=== PATIENT | female | born 1940 | race Caucasian/White ===

== ENCOUNTER → 2018-06-09 14:12 | Outpatient (CLI) | payer MEDICARE, SELFPAY ==
--- NOTE | 2018-06-09 14:15 | CT_ITS ---
CT wrist RT wo con INDICATION: pain following injury, comminuted radial fracture, evaluate for possible punch fracture ITS.REASON: evaluate fracture ORDERING PHYSICIAN: Abiodun Villatoro MD PATIENT AGE: 78 years COMPARISON: 06/08/2018 TECHNIQUE: Axial images are obtained without contrast. Sagittal and coronal reformatted images are reviewed as well. All CT scans at the facility use one or more dose reduction, viz: automated exposure control, ma/kV adjustment per patient size (including targeted exams where dose is matched to indication, i.e. head), or iterative reconstruction technique. FINDINGS: There is a comminuted distal radial fracture abdomen both longitudinal and transverse components. A longitudinal component extending into the intra-articular surface. There is minimal dorsal displacement of a dorsal fracture fragment x 3 mm and minimal dorsal angulation distal fracture fragment. There is no significant depression into the radial articular surface. The carpal bones have an unremarkable appearance. IMPRESSION: Comminuted distal radial fracture with intra-articular involvement with minimal dorsal displacement of the dorsal distal fracture fragment by 3 to 4 mm. No significant depression of the distal radial surface
== END ==
PROVIDERS: PCP Nurse Practitioner; Visit Provider Orthopaedic Surgery
DX: S52.501A Unspecified fracture of the lower end of right radius, initial encounter for closed fracture (principal)
CPT/HCPCS: 73200

== ENCOUNTER → 2018-07-18 12:52 | Outpatient (CLI) | payer MEDICARE, SELFPAY ==
--- NOTE | 2018-07-18 12:56 | XR_ITS ---
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 The distal radial fracture is once again noted with a transverse and longitudinal component with mild impaction of the fracture fragments. There is some increasing callus formation along the dorsal ulnar aspect of the fracture. The longitudinal component extending into the articular surface is somewhat less apparent. There remains good alignment. IMPRESSION: Healing distal radial fracture.
== END ==
PROVIDERS: PCP Nurse Practitioner; Visit Provider Orthopaedic Surgery
DX: S52.501A Unspecified fracture of the lower end of right radius, initial encounter for closed fracture (principal)
CPT/HCPCS: 73110

== ENCOUNTER 2018-07-18 13:47 | Outpatient (RCR) | payer MEDICARE, SELFPAY | END 2018-07-18 13:48 | disposition home or self-care (01) | LOC: OT 13:47 | PROVIDERS: PCP Nurse Practitioner; Visit Provider Orthopaedic Surgery | DX: S52.501A Unspecified fracture of the lower end of right radius, initial encounter for closed fracture (principal) | CPT/HCPCS: 97763 ==

== ENCOUNTER → 2020-03-04 09:05 | Outpatient (CLI) | payer MEDICARE, SELFPAY ==
--- NOTE | 2020-03-04 09:12 | MR_ITS ---
PROCEDURE: MR ANKLE RT WO CON CLINICAL INDICATION: PAIN IN RT ANKLE Ankle pain and swelling, prior injury with pain COMPARISON: No exams were available for comparison TECHNIQUE: Routine multiplanar multi echo sequences are performed without gadolinium enhancement. FINDINGS: The anterior posterior tib fib syndesmosis appears intact. The anterior talofibular ligament and posterior talofibular ligament appears intact. The deltoid ligament, Achilles tendon, extensor tendons, peroneal tendon, flexor hallucis and flexor digitorum longus and posterior tibialis tendons appear intact. There is diffuse increased T2 signal involving the anterior aspect of the talus in the neck of the talus. The soft tissues along the dorsal aspect of the talus also show increased T2 signal. There is some slight increased T2 signal along the plantar surface of the navicular. Plantar fascia is intact. There is a small area of fluid collection within the quadratus plantae muscle/tendon junction. This could be due to old injury IMPRESSION: 1. Diffuse bone marrow edema of the neck and anterior aspect of the talus. This is nonspecific and could be due to bone bruise, inflammation, or infection/osteomyelitis. There is some mild overlying soft tissue swelling dorsally 2. Nonspecific fluid collection within the quadratus plantae musculotendinous junction and could be due to old trauma versus a ganglion cyst. . There is some mild diffuse subcutaneous edema about the ankle Dictated by: Valdemar Sharp MD 03/05/2020 12:39 Electronically signed by Valdemar Sharp MD in [place] 03/05/2020 12:39
== END ==
PROVIDERS: PCP Nurse Practitioner; Visit Provider Orthopaedic Surgery Adult Reconstructive Orthopaedic Surgery
DX: M25.571 Pain in right ankle and joints of right foot (principal)
CPT/HCPCS: 73721

== ENCOUNTER → 2021-02-12 10:02 | Outpatient (POV) | payer MEDICARE, SELFPAY | PROVIDERS: Visit Provider Audiologist | DX: Z00.00 Encounter for general adult medical examination without abnormal findings (principal) ==

== ENCOUNTER → 2021-09-15 11:39 | Outpatient (CLI) | payer MEDICARE, SELFPAY ==
[2021-09-15 12:24] LABS: Basophils % 0.5 % (0.1-2.0); Eosinophils # 0.2 K/mm3 (0.0-0.4); Eosinophils % 3.7 % (0.1-12.0); Hematocrit 41.6 % (37.0-47.0); Hemoglobin 14.3 g/dL (12.2-16.2); Lymphocytes # 1.6 K/mm3 (0.7-4.5); Mean Corpuscular HGB Conc 34.5 g/dL (31.8-35.4); Mean Corpuscular Hemoglobin 31.4 pg (27.0-31.2); Mean Platelet Volume 8.2 fl (7.4-10.4); Monocytes # 0.2 K/mm3 (0.1-1.0); Monocytes % 4.1 % (1.7-9.3); Neutrophils # 2.6 K/mm3 (1.8-7.8); Neutrophils % 56.7 % (37.0-80.0); Platelet Count 201 K/mm3 (142-424); Red Blood Count 4.57 M/mm3 (4.20-5.40); Red Cell Distribution Width 13.8 % (11.5-17.5); White Blood Count 4.6 K/mm3 (4.8-10.8)
[2021-09-15 13:06] LABS: Troponin I < 0.01 ng/ml (0.00-0.034)
[2021-09-15 13:23] LABS: Thyroid Stimulating Hormone 1.58 uIU/mL (0.465-4.68)
== END ==
PROVIDERS: Visit Provider Family Medicine
DX: R42 Dizziness and giddiness (principal); Z79.899 Other long term (current) drug therapy
CPT/HCPCS: 36415; 84443; 84484; 85025

== ENCOUNTER → 2021-10-26 12:03 | Outpatient (CLI) | payer MEDICARE, SELFPAY ==
[2021-10-26 14:19] LABS: Microscopic, Urine URINE MICROSCOPIC (MICROSCOPIC)
[2021-10-26 14:34] LABS: Appearance,Urine CLEAR (Clear); Bilirubin,Urine Negative (Negative); Blood, Urine TRACE-I (Negative); Color,Urine YELLOW (Yellow); Glucose,Urine (UA) Negative (Negative); Ketones,Urine Negative (Negative); Leukocyte Esterase,Urine 1+ (Negative); Nitrate,Urine POSITIVE (Negative); Protein,Urine Negative (Negative); Specific Gravity, Urine 1.015 (1.005-1.030); Urobilinogen,Urine 0.2 EU/dl (0.2)
[2021-10-26 14:40] LABS: Chloride 105 mmol/L (98-107); Potassium 4.1 mmoL/L (3.5-5.1); Sodium 141 mmol/L (136-145)
[2021-10-26 14:41] LABS: Basophils # 0.1 K/mm3 (0-0.2); Basophils % 1.3 % (0.1-2.0); Eosinophils # 0.1 K/mm3 (0.0-0.4); Eosinophils % 1.6 % (0.1-12.0); Hematocrit 40.8 % (37.0-47.0); Hemoglobin 13.2 g/dL (12.2-16.2); Lymphocytes # 1.7 K/mm3 (0.7-4.5); Lymphocytes % 26.8 % (10-50); Mean Corpuscular HGB Conc 32.4 g/dL (31.8-35.4); Mean Corpuscular Hemoglobin 30.2 pg (27.0-31.2); Mean Corpuscular Volume 93.1 fl (81-99); Mean Platelet Volume 8.7 fl (7.4-10.4); Monocytes # 0.2 K/mm3 (0.1-1.0); Neutrophils # 4.4 K/mm3 (1.8-7.8); Neutrophils % 67.4 % (37.0-80.0); Platelet Count 289 K/mm3 (142-424); Red Blood Count 4.38 M/mm3 (4.20-5.40); Red Cell Distribution Width 13.9 % (11.5-17.5); White Blood Count 6.5 K/mm3 (4.8-10.8)
[2021-10-26 14:43] LABS: Amylase 41 U/L (30-110); Anion Gap 13.1 mEq/L (5-15); Blood Urea Nitrogen 24 mg/dl (7-17); Carbon Dioxide 27 mmol/L (22.0-30.0); Estimated Glomerular Filt Rate 48 ml/min (>60); GFR (African American) 58 ML/MIN (>60); Lipase 25 U/L (23-300)
[2021-10-26 14:44] LABS: Calcium 9.2 mg/dl (8.4-10.2); Glucose 125 mg/dl (74-100)
[2021-10-26 15:01] LABS: Bacteria,Urine 4+ /lpf
[2021-11-06 18:14] LABS: 1,25 Dihydroxy Vitamin D 43 pg/mL (.); 1,25-Dihydroxy, Vitamin D-2 <10 pg/mL (.); 1,25-Dihydroxy, Vitamin D-3 42 pg/mL (.)
== END ==
PROVIDERS: Internal Medicine; PCP Family Medicine; Visit Provider Nurse Practitioner
DX: R00.2 Palpitations (principal); R07.9 Chest pain, unspecified; R42 Dizziness and giddiness; R55 Syncope and collapse; R94.31 Abnormal electrocardiogram [ECG] [EKG]; Z87.891 Personal history of nicotine dependence; R68.83 Chills (without fever); Z01.812 Encounter for preprocedural laboratory examination; Z11.52 Encounter for screening for COVID-19
CPT/HCPCS: 80048; 81001; 82150; 82652; 83690; 85025; 87086; 87088; 87186; 93225; C9803; U0003; U0005

== ENCOUNTER 2021-10-27 09:19 | Day surgery (SDC) | payer MEDICARE, SELFPAY ==
[2021-10-27] VITALS (10 sets, daily range): BP systolic 102–164; BP diastolic 57–80; PULSE 46–70; RESP 16–20; TEMP 36.9; O2SAT 95–97; BMI 25.0
--- NOTE | 2021-10-27 | IR_ITS ---
APPROVED REPORT Patient Location: Outpatient PROCEDURES Left heart catheterization Left ventriculogram Selective coronary angiogram FFR to the LAD with an IFR index of 0.72 prior to adenosine administration Drug-eluting stent deployment to the mid LAD Informed consent was obtained prior to the procedure. COMPLICATIONS None Estimated Blood Loss: Less than 10 mls TECHNIQUE One percent lidocaine used to anesthetize the right anterior aspect of the wrist. The right radial artery was accessed via the Seldinger technique. A 6 [place] sheath was placed in the right radial artery. 2.5 mg of verapamil, 800 mcg of nitroglycerin, 1mg Lidocaine and 5000 U Heparin were given through the arterial sheath. The Poppa catheter was also used to perform left heart catheterization, left ventriculogram and selective coronary angiogram. At the end of the diagnostic angiogram therapeutic heparin was administered and a Choice PT extra-support wire was placed distally. An FFR nevus catheter was placed distally and prior to the administration of adenosine the FFR index dropped to 0.72. Given this represented a severe hemodynamic stenosis the apparatus was removed and a 2 mm balloon had to be used to predilate the stenosis due to inability to primarily stent the vessel. A 2.5 x 26 mm resolute Jonh stent was deployed at 20 lavinia reducing the hemodynamically severe stenosis to 0%. MAJO-3 flow was present before and after the procedure. At the end of the procedure the apparatus was removed the sheath was removed good hemostasis was achieved using TR banding patient was transferred to the postop already in stable condition ANGIOGRAPHIC RESULTS The left main artery Normal The left anterior descending artery Is proximally tapered with no overt or obvious stenosis. The midportion is calcified and has an angiographic 70 to 80% concentric stenosis. Distally there are 30 and 40% stenoses present. The circumflex artery Is nondominant yet still large with a proximal concentric 40% stenosis. The remaining vessel has mild 10% atheromatous plaque The right coronary artery Is a large dominant vessel and has proximal diffuse 20 to 30% concentric stenoses The KEARNS ventriculogram reveals Normal 65% The left ventricular end-diastolic pressure 10 mmHg IMPRESSION Hemodynamically severe disease in the mid LAD with successful stenting reducing the stenosis to 0% with 1 drug-eluting stent Normal ejection fraction Normal left ventricular end-diastolic pressure PLAN 1. Brilinta 90 twice daily 2. Continue with beta-rashida therapy 3. LDL less than 55 to be achieved with high intensity statin 4. Recommend loop recorder given syncope with nondiagnostic Holter monitor 5. Recommend PPI because of history of gastric surgery Electronically signed by : Polo Conti MD 10/27/2021 13:12:12
--- NOTE | 2021-10-27 09:37 | CA_ITS ---
APPROVED REPORT EXAM: Comprehensive 2D, Doppler, and color-flow Echocardiogram Scraper Burrer: Neha Whiting RT(R) Ht: 5 ft 5 in Wt: 149lbs BSA: 1.75 BP: 130/84 mmHg Indications: CP, DM, palpitations, MEYER 2D Dimensions LVOT 2.05 cm (M/F) 1.5-2.5 LA Volume 42.80 mL LA Volume Index 24.59 mL/m2 (M/F) 16-34 M-Mode Dimensions RVDd 2.77 cm (0.9-2.6) LA Diam 4.38 cm (1.9-4.0) LVDd 3.34 cm (3.5-5.7) Ao Diam 2.67 cm (2.0-3.7) LVDs 2.51 cm (3.5-5.7) IVSd 0.84 cm (0.6-1.1) PWd 0.72 cm (0.6-1.1) EF (Teich) 50.40% FS 24.90% EDV (Teich) 45.40 mL ESV (Teich) 22.50 mL LV Diastology E Decel Time 190.00 (160-240 msec) E/A Ratio 0.8 MED E' 6.50 (< 7 cm/sec) E'/MED E' Ratio 15.14 (>14) LAT E' 9.20 (<10 cm/sec) E/LAT E' Ratio 10.70 (>14) Mitral Valve MV E Max Rupert. 98.00 (40-130 cm/s) MV A Velocity 122.00 (40-130 cm/s) E/A Ratio 0.81 MV Decel. Time 190.00 (160-240 ms) MV PHT 56.00 ms Left Ventricle Left atrium is mildly enlarged, left ventricle is normal size, mild concentric left ventricular hypertrophy, visually estimated ejection fraction 55% with no regional wall motion abnormality, grade 1 diastolic dysfunction seen without tissue Doppler evidence of raise left atrial pressure. Right Ventricle Right atrium and right ventricle are normal size and contractility. Aortic Valve Aortic valve is thickened and calcified without Doppler evidence of aortic stenosis or aortic insufficiency. Mitral Valve Mitral valve leaflets are minimally thickened, there is mild mitral regurgitation. Tricuspid Valve Tricuspid grossly normal, there is mild tricuspid regurgitation, tricuspid regurgitation jet velocity is inadequate for calculation of the right ventricular systolic pressure. Pulmonic Valve Pulmonic valve is poorly visualized. Great Vessels Aortic root is normal size. Inferior vena cava normal size with normal inspiratory collapse. Pericardium No significant pericardial effusion. Conclusion 1. Mildly enlarged left atrium, normal left ventricular size, mild concentric left ventricular hypertrophy, visually estimated ejection fraction 55% with no regional wall motion abnormality, grade 1 diastolic dysfunction seen without tissue Doppler evidence of raise left atrial pressure. 2. Mild mitral and tricuspid regurgitation. 3. No significant pericardial effusion. 4. Inferior vena cava is normal size with normal inspiratory collapse. Electronically signed by : Manuel Tidwell MD 10/27/2021 19:32:16
[2021-10-27 13:34] LABS: CATHL Activated Clotting Time 317 SEC (74-125)
[2021-10-27 13:34] LABS: CATHL Activated Clotting Time 272 SEC (74-125)
--- NOTE | 2021-10-27 15:33 | HMH.PHACLD ---
Jackie Tripp has received discharge medication counseling on the following medications: -BYSTOLIC (WATCH FOR DIZZINESS/LIGHTHEADEDNESS) -BRILINTA (BRUISING/BLEEDING RISK, GO TO ER IF BUMP HEAD TO RULE OUT BLEED) -LIPITOR (MUSCLE PAIN SIDE EFFECT/CALL MD IF THIS OCCURS, TAKE IN THE EVENING)
== END 2021-10-27 15:22 | disposition home or self-care (01) ==
LOC: CATHLAB 09:21
PROVIDERS: PCP Family Medicine; Visit Provider Internal Medicine
DX: R00.2 Palpitations (principal); R07.9 Chest pain, unspecified; R42 Dizziness and giddiness; R55 Syncope and collapse; R94.31 Abnormal electrocardiogram [ECG] [EKG]; Z87.891 Personal history of nicotine dependence; E11.9 Type 2 diabetes mellitus without complications; I25.10 Atherosclerotic heart disease of native coronary artery without angina pectoris
CPT/HCPCS: 85347; 92928; 93306; 93458; 93571; 99152; 99153; C1725; C1769; C1876; C9600; J0153; J1644; Q9967

== ENCOUNTER → 2021-11-04 13:40 | Outpatient (CLI) | payer MEDICARE, SELFPAY ==
[2021-11-04 14:20] LABS: Coronavirus 19, PCR Not Detected (NotDetected); Influenza A, PCR Not Detected (NotDetected); Influenza B, PCR Not Detected (NotDetected)
== END ==
PROVIDERS: PCP Family Medicine; Visit Provider Internal Medicine
DX: I25.10 Atherosclerotic heart disease of native coronary artery without angina pectoris (principal); I51.89 Other ill-defined heart diseases; R00.1 Bradycardia, unspecified; R00.2 Palpitations; R07.9 Chest pain, unspecified; R42 Dizziness and giddiness; R55 Syncope and collapse; R94.31 Abnormal electrocardiogram [ECG] [EKG]; Z87.891 Personal history of nicotine dependence
CPT/HCPCS: C9803; U0003; U0005

== ENCOUNTER 2021-11-04 14:05 | Day surgery (SDC) | payer MEDICARE, SELFPAY ==
[2021-11-04 14:11] VITALS: BMI 24.7
[2021-11-04 14:30] VITALS: BP 151/76; PULSE 62; PULSE 64; RESP 19; O2SAT 99
[2021-11-04 14:45] VITALS: BP 160/72; PULSE 60; RESP 19; O2SAT 98
--- NOTE | 2021-11-04 14:54 | HMH.LOOP ---
[facility] Loop Recorder Date: 11/04/21 Time: 14:54 Procedure Performed:: implantation of loop recorder Indication:: syncope Technique:: Patient was brought to the cardiac A Operator. After informed consent obtained, 1% lidocaine with epinephrine was used to anesthetize the site along the left anterior aspect of the chest near the sternal border. Using the preformed scalpel, an incision was made and using the supplied preloaded apparatus, the loop recorder was placed subcutaneously without difficulty. Following the deployment of the loop recorder interrogation of the device was performed to ensure appropriate voltage was being detected (.035 mV). Once this was verified, Steri-Strips were placed over the incision and the patient was prepped to discharge home. Patient tolerated the procedure well with minimal discomfort. Impression:: successful implantation of loop recorder Serial Number:: [facility]-Dx M301 Serial # [id number] Plan:: Routine post op care
[2021-11-04 15:00] VITALS: BP 156/65; PULSE 60; PULSE 62; RESP 19; O2SAT 98
== END 2021-11-04 15:14 | disposition home or self-care (01) ==
LOC: CATHLAB 14:07
PROVIDERS: PCP Family Medicine; Visit Provider Internal Medicine
DX: R55 Syncope and collapse (principal); Z20.822 Contact with and (suspected) exposure to COVID-19; I25.10 Atherosclerotic heart disease of native coronary artery without angina pectoris; R07.9 Chest pain, unspecified; Z95.5 Presence of coronary angioplasty implant and graft; R94.31 Abnormal electrocardiogram [ECG] [EKG]; R00.1 Bradycardia, unspecified
CPT/HCPCS: 33285; C9803; U0003; U0005

== ENCOUNTER → 2021-11-10 13:17 | Outpatient (CLI) | payer MEDICARE, SELFPAY ==
--- NOTE | 2021-11-10 13:25 | CT_ITS ---
FINAL REPORT TECHNIQUE: Multiple axial CT sections were performed from the foramen magnum to the vertex. Coronal reformatted images were also obtained. Precontrast and postcontrast injection images were obtained. This study was performed with technique to keep radiation doses as low as reasonably achievable, (ALARA). Individualized dose reduction techniques using automated exposure control or adjustment of mA and/or kV according to the patient size were employed. CLINICAL HISTORY: dizziness/syncope FINDINGS: The ventricles are normal in size. There is no evidence of hemorrhage. No masses are identified. No extra-axial fluid collection is seen. The sinuses are normal. No osseous abnormality is seen on the bone window images. Postcontrast images demonstrate no abnormal enhancement. IMPRESSION: Unremarkable CT of the head with and without contrast. Reviewed, Interpreted and Dictated by Johny Avitia III, MD Transcribed by Janis Ferrari Authenticated by Johny Avitia III, MD on 11/10/2021 03:11:21 PM [facility]
== END ==
PROVIDERS: PCP Family Medicine; Visit Provider Internal Medicine
DX: I25.10 Atherosclerotic heart disease of native coronary artery without angina pectoris (principal); R00.2 Palpitations; R07.9 Chest pain, unspecified; R42 Dizziness and giddiness; R55 Syncope and collapse; R94.31 Abnormal electrocardiogram [ECG] [EKG]; Z87.891 Personal history of nicotine dependence
CPT/HCPCS: 70470; Q9967

== ENCOUNTER 2021-11-18 09:41 | Outpatient (RCR) | payer MEDICARE, SELFPAY | END 2021-12-22 14:27 | disposition home or self-care (01) | LOC: PT 09:41 | PROVIDERS: Visit Provider Internal Medicine | DX: I25.10 Atherosclerotic heart disease of native coronary artery without angina pectoris (principal); Z95.5 Presence of coronary angioplasty implant and graft ==

== ENCOUNTER → 2021-11-30 09:42 | Outpatient (CLI) | payer MEDICARE, SELFPAY ==
[2021-11-30 09:52] LABS: Microscopic, Urine URINE MICROSCOPIC (MICROSCOPIC)
[2021-11-30 10:35] LABS: Basophils # 0.1 K/mm3 (0-0.2); Basophils % 0.4 % (0.1-2.0); Eosinophils % 0.1 % (0.1-12.0); Hematocrit 36.9 % (37.0-47.0); Hemoglobin 11.9 g/dL (12.2-16.2); Lymphocytes # 1.1 K/mm3 (0.7-4.5); Mean Corpuscular HGB Conc 32.2 g/dL (31.8-35.4); Mean Corpuscular Hemoglobin 30.7 pg (27.0-31.2); Mean Corpuscular Volume 95.4 fl (81-99); Mean Platelet Volume 8.5 fl (7.4-10.4); Monocytes # 0.6 K/mm3 (0.1-1.0); Monocytes % 4.5 % (1.7-9.3); Neutrophils # 12.3 K/mm3 (1.8-7.8); Neutrophils % 87.1 % (37.0-80.0); Platelet Count 310 K/mm3 (142-424); Red Blood Count 3.87 M/mm3 (4.20-5.40); Red Cell Distribution Width 14.2 % (11.5-17.5); White Blood Count 14.1 K/mm3 (4.8-10.8)
[2021-11-30 10:38] LABS: MANUAL DIFFERENTIAL MANUAL DIFFERENTIAL (MANUAL DIFF)
[2021-11-30 10:41] LABS: Chloride 100 mmol/L (98-107); Potassium 4.2 mmoL/L (3.5-5.1); Sodium 134 mmol/L (136-145)
[2021-11-30 10:44] LABS: Blood Urea Nitrogen 23 mg/dl (7-17); Estimated Glomerular Filt Rate 48 ml/min (>60); GFR (African American) 58 ML/MIN (>60)
[2021-11-30 10:45] LABS: Anion Gap 13.2 mEq/L (5-15); Appearance,Urine CLEAR (Clear); Blood, Urine Negative (Negative); Carbon Dioxide 25 mmol/L (22.0-30.0); Color,Urine YELLOW (Yellow); Glucose 182 mg/dl (74-100); Glucose,Urine (UA) Negative (Negative); Ketones,Urine 2+ (Negative); Leukocyte Esterase,Urine TRACE (Negative); Nitrate,Urine Negative (Negative); Protein,Urine TRACE (Negative); Specific Gravity, Urine 1.025 (1.005-1.030); Urobilinogen,Urine 0.2 EU/dl (0.2)
[2021-11-30 11:09] LABS: Bilirubin,Urine 1+ (Negative)
[2021-11-30 11:10] LABS: Bacteria,Urine Trace /lpf
[2021-11-30 11:50] LABS: Lymphocytes % 3 % (10-50); Monocytes % 5 % (2-9); Neutrophils % 92 % (42-76); Nucleated Red Blood Cells 1; Platelet Estimate Normal; Total Cells Counted 100
== END ==
PROVIDERS: Visit Provider Internal Medicine
DX: I25.10 Atherosclerotic heart disease of native coronary artery without angina pectoris (principal); I45.10 Unspecified right bundle-branch block; I48.0 Paroxysmal atrial fibrillation; R94.31 Abnormal electrocardiogram [ECG] [EKG]; Z87.891 Personal history of nicotine dependence; Z95.818 Presence of other cardiac implants and grafts
CPT/HCPCS: 36415; 80048; 81001; 85007; 85025

== ENCOUNTER → 2022-02-10 12:29 | Outpatient (CLI) | payer MEDICARE, SELFPAY ==
[2022-02-10 13:19] LABS: Alanine Aminotransferase 24 U/L (12-78); Albumin Level 3.9 g/dl (3.5-5.0); Alkaline Phosphatase 95 U/L (38-126); Aspartate Amino Transferase 28 U/L (14-36); Bilirubin,Direct 0.1 mg/dl (0.0-0.4); Bilirubin,Indirect 0.7 mg/dL (0.0-0.9); Bilirubin,Total 0.8 mg/dl (0.2-1.3); Bilirubin,Unconjugated 0.7 mg/dL (0.0-1.1); Chol/HDL Ratio 1.7 (1-3.5); Cholesterol 109 mg/dl (140-200); Creatine Kinase 97 U/L (30-135); HDL Cholesterol 64 mg/dl (40-60); Total Protein,Serum 6.7 g/dl (6.3-8.2); Triglycerides 80 mg/dl (30-150); VLDL Cholesterol 16 mg/dL (0-40)
[2022-02-10 13:31] LABS: Direct LDL Cholesterol 30.09 mg/dL (100-129)
== END ==
PROVIDERS: Visit Provider Physician Assistant
DX: I25.10 Atherosclerotic heart disease of native coronary artery without angina pectoris (principal); I45.10 Unspecified right bundle-branch block; I48.0 Paroxysmal atrial fibrillation; R94.31 Abnormal electrocardiogram [ECG] [EKG]; Z87.891 Personal history of nicotine dependence; Z95.818 Presence of other cardiac implants and grafts
CPT/HCPCS: 36415; 80061; 80076; 82550

== ENCOUNTER → 2022-07-19 08:52 | Outpatient (CLI) | payer MEDICARE, SELFPAY ==
[2022-07-19 09:49] LABS: Basophils # 0.1 K/mm3 (0-0.2); Basophils % 0.8 % (0.1-2.0); Eosinophils # 0.1 K/mm3 (0.0-0.4); Eosinophils % 2.3 % (0.1-12.0); Hematocrit 41.2 % (37.0-47.0); Lymphocytes # 2.1 K/mm3 (0.7-4.5); Lymphocytes % 33.9 % (10-50); Mean Corpuscular HGB Conc 31.6 g/dL (31.8-35.4); Mean Corpuscular Hemoglobin 29.4 pg (27.0-31.2); Mean Corpuscular Volume 93.1 fl (81-99); Mean Platelet Volume 8.9 fl (7.4-10.4); Monocytes # 0.3 K/mm3 (0.1-1.0); Monocytes % 4.3 % (1.7-9.3); Neutrophils # 3.6 K/mm3 (1.8-7.8); Neutrophils % 58.6 % (37.0-80.0); Platelet Count 283 K/mm3 (142-424); Red Blood Count 4.42 M/mm3 (4.20-5.40); Red Cell Distribution Width 15.3 % (11.5-17.5); White Blood Count 6.1 K/mm3 (4.8-10.8)
[2022-07-19 10:27] LABS: Alanine Aminotransferase 26 U/L (12-78); Albumin/Globulin Ratio 1.4 (1.1-1.8); Alkaline Phosphatase 145 U/L (38-126); Anion Gap 14.2 mEq/L (5-15); Aspartate Amino Transferase 34 U/L (14-36); Bilirubin,Total 0.6 mg/dl (0.2-1.3); Blood Urea Nitrogen 21 mg/dl (7-17); Calcium 9.3 mg/dl (8.4-10.2); Carbon Dioxide 26 mmol/L (22.0-30.0); Chloride 106 mmol/L (98-107); Chol/HDL Ratio 2.5 (1-3.5); Cholesterol 160 mg/dl (140-200); Estimated Glomerular Filt Rate 69 ml/min (>60); GFR (African American) 83 ML/MIN (>60); Globulin 2.8 g/dL (1.3-3.2); Glucose 127 mg/dl (74-100); HDL Cholesterol 64 mg/dl (40-60); Potassium 4.2 mmoL/L (3.5-5.1); Sodium 142 mmol/L (136-145); Total Protein,Serum 6.8 g/dl (6.3-8.2); Triglycerides 142 mg/dl (30-150); VLDL Cholesterol 28 mg/dL (0-40)
[2022-07-19 10:45] LABS: Direct LDL Cholesterol 67.03 mg/dL (100-129)
[2022-07-19 10:56] LABS: Thyroid Stimulating Hormone 1.91 uIU/mL (0.465-4.68)
== END ==
PROVIDERS: PCP Family Medicine; Visit Provider Family Medicine
DX: I25.10 Atherosclerotic heart disease of native coronary artery without angina pectoris (principal); G47.00 Insomnia, unspecified; Z87.440 Personal history of urinary (tract) infections; R82.90 Unspecified abnormal findings in urine
CPT/HCPCS: 36415; 80053; 80061; 84443; 85025; 87086; 87088; 87186

== ENCOUNTER → 2022-08-02 13:21 | Outpatient (CLI) | payer MEDICARE, SELFPAY | PROVIDERS: PCP Family Medicine; Visit Provider Family Medicine | DX: R74.8 Abnormal levels of other serum enzymes (principal) | CPT/HCPCS: 80053; 83036; 84075; 84080; 87086 ==

== ENCOUNTER → 2022-11-29 13:54 | Outpatient (CLI) | payer MEDICARE, SELFPAY ==
[2022-11-29 15:12] LABS: Hemoglobin A1C 6.4 % (4.0-6.0)
[2022-11-29 15:17] LABS: Microalbumin/Creatinine Ratio 147.4
[2022-11-29 15:24] LABS: Creatinine,Urine Random 51 mg/dL (Not Estab.)
[2022-11-29 15:36] LABS: Chloride 107 mmol/L (98-107); Sodium 139 mmol/L (136-145)
[2022-11-29 15:37] LABS: Potassium 4.7 mmoL/L (3.5-5.1)
[2022-11-29 15:39] LABS: Alanine Aminotransferase 28 U/L (12-78); Albumin Level 4.1 g/dl (3.5-5.0); Albumin/Globulin Ratio 1.5 (1.1-1.8); Alkaline Phosphatase 113 U/L (38-126); Anion Gap 10.7 mEq/L (5-15); Aspartate Amino Transferase 27 U/L (14-36); Bilirubin,Total 0.5 mg/dl (0.2-1.3); Blood Urea Nitrogen 23 mg/dl (7-17); Calcium 9.2 mg/dl (8.4-10.2); Carbon Dioxide 26 mmol/L (22.0-30.0); Estimated Glomerular Filt Rate 53 ml/min (>60); GFR (African American) 64 ML/MIN (>60); Globulin 2.8 g/dL (1.3-3.2); Glucose 138 mg/dl (74-100); Total Protein,Serum 6.9 g/dl (6.3-8.2)
== END ==
PROVIDERS: PCP Family Medicine; Visit Provider Family Medicine
DX: R73.01 Impaired fasting glucose (principal); R74.8 Abnormal levels of other serum enzymes
CPT/HCPCS: 36415; 80053; 82043; 82570; 83036

== ENCOUNTER → 2023-02-28 10:52 | Outpatient (CLI) | payer MEDICARE, SELFPAY ==
[2023-02-28 11:40] LABS: Basophils % 0.4 % (0.1-2.0); Eosinophils # 0.3 K/mm3 (0.0-0.4); Eosinophils % 5.3 % (0.1-12.0); Hematocrit 37.7 % (37.0-47.0); Hemoglobin 12.2 g/dL (12.2-16.2); Lymphocytes # 1.3 K/mm3 (0.7-4.5); Lymphocytes % 22.8 % (10-50); Mean Corpuscular HGB Conc 32.4 g/dL (31.8-35.4); Mean Corpuscular Hemoglobin 29.1 pg (27.0-31.2); Mean Corpuscular Volume 90.1 fl (81-99); Mean Platelet Volume 8.3 fl (7.4-10.4); Monocytes # 0.3 K/mm3 (0.1-1.0); Neutrophils # 3.7 K/mm3 (1.8-7.8); Neutrophils % 65.6 % (37.0-80.0); Platelet Count 243 K/mm3 (142-424); Red Blood Count 4.19 M/mm3 (4.20-5.40); Red Cell Distribution Width 14.6 % (11.5-17.5); White Blood Count 5.7 K/mm3 (4.8-10.8)
[2023-02-28 11:49] LABS: Chloride 106 mmol/L (98-107)
[2023-02-28 11:50] LABS: Potassium 4.4 mmoL/L (3.5-5.1); Sodium 141 mmol/L (136-145)
[2023-02-28 11:52] LABS: Alanine Aminotransferase 31 U/L (12-78); Alkaline Phosphatase 113 U/L (38-126); Anion Gap 12.4 mEq/L (5-15); Aspartate Amino Transferase 36 U/L (14-36); Bilirubin,Total 0.3 mg/dl (0.2-1.3); Blood Urea Nitrogen 20 mg/dl (7-17); Carbon Dioxide 27 mmol/L (22.0-30.0); Cholesterol 151 mg/dl (140-200); Estimated Glomerular Filt Rate 53 ml/min (>60); GFR (African American) 64 ML/MIN (>60); Triglycerides 148 mg/dl (30-150); VLDL Cholesterol 30 mg/dL (0-40)
[2023-02-28 11:53] LABS: Albumin Level 3.8 g/dl (3.5-5.0); Albumin/Globulin Ratio 1.5 (1.1-1.8); Calcium 9.5 mg/dl (8.4-10.2); Chol/HDL Ratio 2.2 (1-3.5); Globulin 2.6 g/dL (1.3-3.2); Glucose 119 mg/dl (74-100); HDL Cholesterol 68 mg/dl (40-60); Total Protein,Serum 6.4 g/dl (6.3-8.2)
[2023-02-28 12:04] LABS: Direct LDL Cholesterol 57.85 mg/dL (100-129)
[2023-02-28 12:54] LABS: Hemoglobin A1C 6.3 % (4.0-6.0)
== END ==
PROVIDERS: PCP Nurse Practitioner Family; Visit Provider Nurse Practitioner Family
DX: E11.9 Type 2 diabetes mellitus without complications (principal); I25.10 Atherosclerotic heart disease of native coronary artery without angina pectoris
CPT/HCPCS: 36415; 80053; 80061; 83036; 85025

== ENCOUNTER → 2023-03-01 18:15 | Outpatient (CLI) | payer MEDICARE, SELFPAY ==
[2023-03-01 21:04] LABS: Creatinine,Urine Random 56 mg/dL (Not Estab.)
[2023-03-01 21:07] LABS: Microalbumin/Creatinine Ratio 98.5
== END ==
PROVIDERS: Visit Provider Family Medicine
DX: E11.9 Type 2 diabetes mellitus without complications (principal); N39.0 Urinary tract infection, site not specified; B96.1 Klebsiella pneumoniae [K. pneumoniae] as the cause of diseases classified elsewhere
CPT/HCPCS: 82043; 82570

== ENCOUNTER → 2023-03-02 16:06 | Outpatient (CLI) | payer MEDICARE, SELFPAY | PROVIDERS: Visit Provider Family Medicine | DX: N39.0 Urinary tract infection, site not specified (principal); B96.1 Klebsiella pneumoniae [K. pneumoniae] as the cause of diseases classified elsewhere | CPT/HCPCS: 87086; 87088; 87186 ==

== ENCOUNTER → 2023-05-20 13:37 | Outpatient (CLI) | payer MEDICARE, SELFPAY ==
--- NOTE | 2023-05-20 13:51 | XR_ITS ---
FINAL REPORT CLINICAL HISTORY: pain left ankle FINDINGS: Left ankle Three views were obtained. There is no acute fracture or dislocation. The joint spaces appear normal. There is soft tissue swelling about the ankle. The mortise is intact. There is a small plantar spur. IMPRESSION: No acute process. Reviewed, Interpreted and Dictated by Boston Nagel MD Transcribed by Janis Ferrari Authenticated and [facility]
--- NOTE | 2023-05-20 13:51 | XR_ITS ---
FINAL REPORT CLINICAL HISTORY: pain and edema left foot FINDINGS: Left foot Three views were obtained. There is no acute fracture or dislocation. The bones are osteopenic. The joint spaces appear normal. No soft tissue abnormality is identified. IMPRESSION: No acute process. Reviewed, Interpreted and Dictated by Boston Nagel MD Transcribed by Janis Ferrari Authenticated and [facility]
[2023-05-20 14:05] LABS: Uric Acid 6.3 mg/dl (2.5-6.2)
[2023-05-20 14:13] LABS: Basophils % 0.3 % (0.1-2.0); Eosinophils # 0.2 K/mm3 (0.0-0.4); Eosinophils % 2.2 % (0.1-12.0); Hematocrit 40.4 % (37.0-47.0); Hemoglobin 13.3 g/dL (12.2-16.2); Lymphocytes # 1.9 K/mm3 (0.7-4.5); Lymphocytes % 24.9 % (10-50); Mean Corpuscular HGB Conc 32.8 g/dL (31.8-35.4); Mean Corpuscular Hemoglobin 29.6 pg (27.0-31.2); Mean Corpuscular Volume 90.2 fl (81-99); Mean Platelet Volume 8.5 fl (7.4-10.4); Monocytes # 0.3 K/mm3 (0.1-1.0); Monocytes % 3.7 % (1.7-9.3); Neutrophils # 5.1 K/mm3 (1.8-7.8); Neutrophils % 68.7 % (37.0-80.0); Platelet Count 245 K/mm3 (142-424); Red Blood Count 4.48 M/mm3 (4.20-5.40); Red Cell Distribution Width 15.4 % (11.5-17.5); White Blood Count 7.4 K/mm3 (4.8-10.8)
[2023-05-20 16:33] LABS: Erythrocyte Sedimentation Rate 20 mm/hr (0-30)
== END ==
PROVIDERS: PCP Nurse Practitioner Family; Visit Provider Internal Medicine
DX: M79.672 Pain in left foot (principal)
CPT/HCPCS: 36415; 73610; 73630; 84550; 85025; 85651

== ENCOUNTER → 2023-08-24 08:40 | Outpatient (CLI) | payer MEDICARE, SELFPAY ==
[2023-08-23 15:34] LABS: Basophils % 0.2 % (0.1-2.0); Eosinophils # 0.1 K/mm3 (0.0-0.4); Eosinophils % 2.7 % (0.1-12.0); Hematocrit 35.3 % (37.0-47.0); Hemoglobin 11.8 g/dL (12.2-16.2); Lymphocytes # 0.9 K/mm3 (0.7-4.5); Mean Corpuscular HGB Conc 33.5 g/dL (31.8-35.4); Mean Corpuscular Hemoglobin 31.7 pg (27.0-31.2); Mean Corpuscular Volume 94.7 fl (81-99); Mean Platelet Volume 9.4 fl (7.4-10.4); Monocytes # 0.1 K/mm3 (0.1-1.0); Neutrophils # 1.6 K/mm3 (1.8-7.8); Neutrophils % 59.1 % (37.0-80.0); Platelet Count 155 K/mm3 (142-424); Red Blood Count 3.73 M/mm3 (4.20-5.40); Red Cell Distribution Width 15.2 % (11.5-17.5); White Blood Count 2.7 K/mm3 (4.8-10.8)
[2023-08-23 15:49] LABS: Alanine Aminotransferase 27 U/L (12-78); Albumin Level 3.8 g/dl (3.5-5.0); Albumin/Globulin Ratio 1.5 (1.1-1.8); Alkaline Phosphatase 106 U/L (38-126); Anion Gap 11.9 mEq/L (5-15); Aspartate Amino Transferase 39 U/L (14-36); Bilirubin,Total 0.4 mg/dl (0.2-1.3); Blood Urea Nitrogen 14 mg/dl (7-17); Calcium 8.9 mg/dl (8.4-10.2); Carbon Dioxide 26 mmol/L (22.0-30.0); Chloride 106 mmol/L (98-107); Estimated Glomerular Filt Rate 60 ml/min (>60); GFR (African American) 72 ML/MIN (>60); Globulin 2.6 g/dL (1.3-3.2); Glucose 116 mg/dl (74-100); Potassium 3.9 mmoL/L (3.5-5.1); Sodium 140 mmol/L (136-145); Total Protein,Serum 6.4 g/dl (6.3-8.2)
[2023-08-23 16:06] LABS: Free T4 (Free Thyroxine) 1.16 ng/dl (0.78-2.19)
[2023-08-23 16:21] LABS: Thyroid Stimulating Hormone 0.57 uIU/mL (0.465-4.68)
[2023-08-23 16:40] LABS: Vitamin B12 308 pg/mL (239-931)
== END ==
PROVIDERS: PCP Nurse Practitioner Family; Visit Provider Nurse Practitioner Family
DX: N39.0 Urinary tract infection, site not specified (principal); R53.1 Weakness; R42 Dizziness and giddiness; R31.9 Hematuria, unspecified; Z79.899 Other long term (current) drug therapy
CPT/HCPCS: 80053; 82607; 84439; 84443; 85025; 87086

== ENCOUNTER 2023-10-13 14:58 | Outpatient (CLI) | payer MEDICARE, SELFPAY | END 2023-10-13 23:59 | LOC: LAB.DROPOF 10-14 11:06 | PROVIDERS: PCP Nurse Practitioner Family; Visit Provider Nurse Practitioner Family | DX: R30.0 Dysuria (principal) | CPT/HCPCS: 87086 ==

== ENCOUNTER 2024-02-22 09:48 | Outpatient (CLI) | payer MEDICARE, SELFPAY ==
[2024-02-22 17:59] LABS: Microscopic, Urine URINE MICROSCOPIC (MICROSCOPIC)
[2024-02-22 18:16] LABS: Basophils % 0.5 % (0.1-2.0); Eosinophils # 0.2 K/mm3 (0.0-0.4); Eosinophils % 3.2 % (0.1-12.0); Lymphocytes # 1.9 K/mm3 (0.7-4.5); Lymphocytes % 34.5 % (10-50); Mean Corpuscular HGB Conc 32.5 g/dL (31.8-35.4); Mean Corpuscular Hemoglobin 31.5 pg (27.0-31.2); Mean Corpuscular Volume 97.1 fl (81-99); Mean Platelet Volume 9.4 fl (7.4-10.4); Monocytes # 0.2 K/mm3 (0.1-1.0); Monocytes % 4.1 % (1.7-9.3); Neutrophils # 3.1 K/mm3 (1.8-7.8); Neutrophils % 57.6 % (37.0-80.0); Platelet Count 288 K/mm3 (142-424); Red Blood Count 4.12 M/mm3 (4.20-5.40); Red Cell Distribution Width 14.3 % (11.5-17.5); White Blood Count 5.4 K/mm3 (4.8-10.8)
[2024-02-22 18:24] LABS: Alanine Aminotransferase 34 U/L (12-78); Albumin Level 4.8 g/dl (3.5-5.0); Albumin/Globulin Ratio 1.6 (1.1-1.8); Alkaline Phosphatase 145 U/L (38-126); Anion Gap 13.6 mEq/L (5-15); Aspartate Amino Transferase 39 U/L (14-36); Bilirubin,Total 0.6 mg/dl (0.2-1.3); Blood Urea Nitrogen 20 mg/dl (7-17); Calcium 10.6 mg/dl (8.4-10.2); Carbon Dioxide 28 mmol/L (22.0-30.0); Chloride 106 mmol/L (98-107); Chol/HDL Ratio 1.7 (1-3.5); Cholesterol 186 mg/dl (140-200); Estimated Glomerular Filt Rate 47 ml/min (>60); GFR (African American) 57 ML/MIN (>60); Glucose 111 mg/dl (74-100); HDL Cholesterol 109 mg/dl (40-60); Potassium 4.6 mmoL/L (3.5-5.1); Sodium 143 mmol/L (136-145); Total Protein,Serum 7.8 g/dl (6.3-8.2); Triglycerides 146 mg/dl (30-150); VLDL Cholesterol 29 mg/dL (0-40)
[2024-02-22 18:36] LABS: Direct LDL Cholesterol 72.17 mg/dL (100-129)
[2024-02-22 18:39] LABS: Free T4 (Free Thyroxine) 1.04 ng/dl (0.78-2.19)
[2024-02-22 18:40] LABS: 25-OH Vitamin D, Total 19.4 ng/mL (30-100)
[2024-02-22 18:56] LABS: Appearance,Urine CLEAR (Clear); Bilirubin,Urine Negative (Negative); Blood, Urine Negative (Negative); Color,Urine YELLOW (Yellow); Glucose,Urine (UA) Negative (Negative); Ketones,Urine Negative (Negative); Leukocyte Esterase,Urine Negative (Negative); Nitrate,Urine Negative (Negative); PH,Urine 5.5 (5.0-8.5); Protein,Urine Negative (Negative); Specific Gravity, Urine 1.015 (1.005-1.030); Thyroid Stimulating Hormone < 0.02 uIU/mL (0.465-4.68); Urobilinogen,Urine 0.2 EU/dl (0.2)
[2024-02-22 19:15] LABS: Vitamin B12 319 pg/mL (239-931)
[2024-02-22 19:43] LABS: Squamous Epithelial Cell,Urine Occasional #/hpf (0-5); WBC,Urine Occasional #/hpf (0-3)
[2024-02-22 19:57] LABS: Iron 76 ug/dL (37-170)
[2024-02-22 20:09] LABS: Total Iron Binding Capacity 380 ug/dL (265-497)
[2024-02-22 20:10] LABS: Hemoglobin A1C 5.8 % (4.0-6.0)
[2024-02-22 20:35] LABS: Ferritin 9.01 ng/ml (11.1-264)
== END 2024-02-22 23:59 | disposition home or self-care (01) ==
LOC: LAB.DROPOF 02-23 09:49
PROVIDERS: PCP Nurse Practitioner Family; Visit Provider Nurse Practitioner Family
DX: R53.83 Other fatigue (principal); E11.9 Type 2 diabetes mellitus without complications; Z87.440 Personal history of urinary (tract) infections; K52.9 Noninfective gastroenteritis and colitis, unspecified; E55.9 Vitamin D deficiency, unspecified; B96.1 Klebsiella pneumoniae [K. pneumoniae] as the cause of diseases classified elsewhere; E61.1 Iron deficiency
CPT/HCPCS: 80053; 80061; 81001; 82306; 82607; 82728; 83036; 83540; 83550; 84439; 84443; 85025; 87086; 87088; 87186

== ENCOUNTER 2024-02-29 19:36 | Outpatient (CLI) | payer MEDICARE, SELFPAY ==
[2024-02-29 19:53] LABS: Adenovirus F 40/41, stool Not Detected (NotDetected); Astrovirus Not Detected (NotDetected); Campylobacter Not Detected (NotDetected); Clostridium Difficile A/B, PCR Not Detected (NotDetected); Cryptosporidium Not Detected (NotDetected); Cyclospora Cayetanesis Not Detected (NotDetected); Entamoeba histolytica Not Detected (NotDetected); Enteroaggregative E coli Not Detected (NotDetected); Enteropathogenic E coli Not Detected (NotDetected); Enterotoxigenic E coli Not Detected (NotDetected); Giardia lamblia Not Detected (NotDetected); Norovirus Not Detected (NotDetected); Plesimonas Shigalloides, PCR Not Detected (NotDetected); Rotavirus A Not Detected (NotDetected); Salmonella, PCR Not Detected (NotDetected); Sapovirus Not Detected (NotDetected); Shiga-like toxin E coli Not Detected (NotDetected); Shigella Enterovasive E coli Not Detected (NotDetected); Vibrio Cholerae Not Detected (NotDetected); Vibrio, PCR Not Detected (NotDetected); Yersinia Entercolitica, PCR Not Detected (NotDetected)
[2024-02-29 21:53] LABS: Occult Blood,Stool Negative (Negative)
== END 2024-02-29 23:59 | disposition home or self-care (01) ==
LOC: LAB.DROPOF 19:39
PROVIDERS: PCP Nurse Practitioner Family; Visit Provider Nurse Practitioner Family
DX: R19.7 Diarrhea, unspecified (principal); K92.1 Melena; R53.83 Other fatigue
CPT/HCPCS: 82272; 87045; 87177; 87506; G0328

== ENCOUNTER 2024-03-06 12:39 | Outpatient (CLI) | payer MEDICARE, SELFPAY ==
[2024-03-06 13:15] VITALS: BP 148/71; PULSE 72; RESP 18; TEMP 36.7; O2SAT 98
[2024-03-06] MEDS: IRON SUCROSE COMPLEX 200 MG in 0.9 % SODIUM CHLORIDE 100 ML 220 MG IV (13:15)
[2024-03-06] MEDS: SODIUM CHLORIDE 0.9% 50ML BAG 50 ML IV (13:15)
[2024-03-06] MEDS: SODIUM CHLORIDE 0.9% 10ML FLUSH SYRINGE 10 ML IV (13:15)
[2024-03-06 13:45] VITALS: BP 134/76; PULSE 76
== END 2024-03-06 13:50 | disposition home or self-care (01) ==
LOC: INF 12:41
PROVIDERS: PCP Nurse Practitioner Family; Visit Provider Nurse Practitioner Family
DX: E61.1 Iron deficiency (principal)
CPT/HCPCS: 96365; J1756

== ENCOUNTER 2024-03-15 12:40 | Outpatient (CLI) | payer MEDICARE, SELFPAY ==
[2024-03-15 12:58] VITALS: BP 141/71; PULSE 81; RESP 20; TEMP 36.4; O2SAT 98
[2024-03-15] MEDS: IRON SUCROSE COMPLEX 200 MG in 0.9 % SODIUM CHLORIDE 100 ML 220 MG IV (12:58)
[2024-03-15] MEDS: SODIUM CHLORIDE 0.9% 10ML FLUSH SYRINGE 10 ML IV (12:58)
[2024-03-15] MEDS: SODIUM CHLORIDE 0.9% 50ML BAG 50 ML IV (12:58)
[2024-03-15 13:40] VITALS: BP 133/77; PULSE 77; RESP 20; O2SAT 98
== END 2024-03-15 13:40 | disposition home or self-care (01) ==
LOC: INF 12:41
PROVIDERS: PCP Nurse Practitioner Family; Visit Provider Nurse Practitioner Family
DX: D50.9 Iron deficiency anemia, unspecified (principal)
CPT/HCPCS: 96365; J1756

== ENCOUNTER 2024-03-22 12:37 | Outpatient (CLI) | payer MEDICARE, SELFPAY ==
[2024-03-22 12:45] VITALS: BP 144/86; PULSE 74; RESP 18; TEMP 36.9; O2SAT 98
[2024-03-22] MEDS: IRON SUCROSE COMPLEX 200 MG in 0.9 % SODIUM CHLORIDE 100 ML 220 MG IV (12:45)
[2024-03-22] MEDS: SODIUM CHLORIDE 0.9% 50ML BAG 50 ML IV (12:45)
[2024-03-22] MEDS: SODIUM CHLORIDE 0.9% 10ML FLUSH SYRINGE 10 ML IV (13:30)
[2024-03-22 13:36] VITALS: BP 139/82; PULSE 78; RESP 18; O2SAT 99
== END 2024-03-22 13:40 | disposition home or self-care (01) ==
LOC: INF 12:38
PROVIDERS: PCP Nurse Practitioner Family; Visit Provider Nurse Practitioner Family
DX: D50.9 Iron deficiency anemia, unspecified (principal)
CPT/HCPCS: 96365; J1756

== ENCOUNTER 2024-03-28 12:45 | Outpatient (CLI) | payer MEDICARE, SELFPAY ==
[2024-03-28 13:04] VITALS: BP 155/72; PULSE 73; RESP 18; TEMP 36.4; O2SAT 98
[2024-03-28] MEDS: SODIUM CHLORIDE 0.9% 50ML BAG 50 ML IV (13:04)
[2024-03-28] MEDS: IRON SUCROSE COMPLEX 200 MG in 0.9 % SODIUM CHLORIDE 100 ML 220 MG IV (13:04)
[2024-03-28] MEDS: SODIUM CHLORIDE 0.9% 10ML FLUSH SYRINGE 10 ML IV (13:04)
[2024-03-28 13:50] VITALS: BP 144/69; PULSE 64; RESP 18; O2SAT 98
== END 2024-03-28 13:55 | disposition home or self-care (01) ==
LOC: INF 12:47
PROVIDERS: PCP Nurse Practitioner Family; Visit Provider Nurse Practitioner Family
DX: D50.9 Iron deficiency anemia, unspecified (principal)
CPT/HCPCS: 96365; J1756

== ENCOUNTER 2024-04-04 12:44 | Outpatient (CLI) | payer MEDICARE, SELFPAY ==
[2024-04-04 13:02] VITALS: BP 138/53; PULSE 71; RESP 18; TEMP 36.7; O2SAT 98
[2024-04-04] MEDS: SODIUM CHLORIDE 0.9% 10ML FLUSH SYRINGE 10 ML IV (13:02)
[2024-04-04] MEDS: IRON SUCROSE COMPLEX 200 MG in 0.9 % SODIUM CHLORIDE 100 ML 220 MG IV (13:02)
[2024-04-04] MEDS: SODIUM CHLORIDE 0.9% 50ML BAG 50 ML IV (13:02)
[2024-04-04 13:50] VITALS: BP 120/91; PULSE 68; RESP 18; O2SAT 97
== END 2024-04-04 13:58 | disposition home or self-care (01) ==
LOC: INF 12:45
PROVIDERS: PCP Nurse Practitioner Family; Visit Provider Nurse Practitioner Family
DX: E61.1 Iron deficiency (principal)
CPT/HCPCS: 96365; J1756

== ENCOUNTER 2024-06-04 10:34 | Emergency (ER) | payer MEDICARE, SELFPAY ==
[2024-06-04] VITALS (7 sets, daily range): BP systolic 147–199; BP diastolic 77–166; PULSE 58–69; RESP 16–26; TEMP 36.4–36.7; O2SAT 97–100; BMI 22.4
--- NOTE | 2024-06-04 10:34 | ECG_ITS ---
APPROVED REPORT Exam: Resting ECG HR:65 bpm ECG Measurements Heart Rate 65 AXES AZ 147 P 58 QRSd 125 QRS 80 QT 408 T 60 QTc 420 Conclusion SINUS RHYTHM WITH OCCASIONAL SUPRAVENTRICULAR PREMATURE COMPLEXES RIGHT BUNDLE BRANCH BLOCK [120+ ms QRS DURATION, UPRIGHT V1, 40+ ms S IN I/aVL/V4/V5/V6] ABNORMAL ECG UNCONFIRMED REPORT Electronically signed by : Fabrizio Woods, 06/04/2024 14:29:34
--- NOTE | 2024-06-04 10:48 | XR_ITS ---
FINAL REPORT TECHNIQUE: Single view chest CLINICAL HISTORY: chest pain, shortness of air FINDINGS: A single view of the chest was obtained. The heart and mediastinum are within normal limits. The lungs are clear. There is no pneumothorax. Osseous structures are unremarkable. IMPRESSION: No acute cardiopulmonary process. Reviewed, Interpreted and Dictated by Johny Avitia III, MD Transcribed by Hayley Downs Authenticated and [facility]
--- NOTE | 2024-06-04 10:49 | PC.NURSE ---
Dr. Woods at bedside for eval
--- NOTE | 2024-06-04 11:00 | PC.NURSE ---
Rad in room for portable x-ray
--- NOTE | 2024-06-04 11:00 | PC.NURSE ---
Called respiratory, s/w Argelia, to notify of VBG and blood has already collected and is in lab @ [id number]
[2024-06-04 11:05] LABS: VBG HCO3 26.2 mmol/L (23-30); VBG Oxygen Saturation 58.4 % (50-70); VBG PCO2 34.4 mmol/L (35-51); VBG PO2 26.7 mmol/L (28-40); VBG Total CO2 27.3 mmol/L (23-27)
--- NOTE | 2024-06-04 11:05 | ED_ITS ---
Discharge Plan Disposition Patient Disposition: Home, Self-Care Prescriptions Prescriptions: No Action acetaminophen [Tylenol Arthritis Pain] 650 mg tablet extended release 650 mg PO Q12H mupirocin 2 % ointment 1 applic topical BID Qty: 15 1RF furosemide 20 mg tablet 20 mg PO DAILY Qty: 90 3RF triamcinolone acetonide 0.1 % cream 1 applic topical TID Qty: 30 1RF diclofenac sodium 75 mg tablet,delayed release (DR/EC) 75 mg PO BID Qty: 180 0RF trazodone 50 mg tablet 50 - 100 mg PO HS PRN (Reason: insomnia) 30 Days Qty: 60 5RF cholecalciferol (vitamin D3) 1,250 mcg (50,000 unit) capsule 1,250 mcg PO WEEKLY Qty: 12 1RF Venofer 200 mg iron/10 mL solution 200 mg IV WEEKLY Rx Instructions: administer over 30 mins Referrals Follow up/Referrals: Provider,Referral, MD [Referring] - See instructions Activity Restrictions/Add. Instructions Additional Instructions/Restrictions: No evidence of an acute cardiopulmonary emergency. You were positive for COVID- 19 which explains the symptoms that you have been suffering from including generalized weakness and some mild shortness of breath. As discussed given the duration of your symptoms oral Paxlovid is not indicated in your particular situation. Please return to the emergency department with any significant worsening shortness of breath or other concerns. Otherwise you may follow-up with cardiology but no emergent indication for that from my standpoint. Clinical Impressions Clinical Impression: COVID-19, Dyspnea, Generalized weakness Print Language Print Language: Uzbek Discharge ED Provider: [facility] Adult HPI General Chief complaint: Chest Pain Stated complaint: weakness Time Seen by Provider: 06/04/24 10:49 Mode of Arrival: Wheelchair Source of Information: Patient Limitations: No Limitations Description of Symptoms (Recalled from ER Triage Doc. by RN): pt presents to ED from [facility] office. pt was being seen there for weakness. pt complains of intermittent chest heaviness. pt sent to ED for further evaluation. pt reports ongoing weakness and shortness of air with excertion. History of Present Illness HPI narrative: Patient is an 84-year-old female sent from cardiology office for dyspnea. Patient primarily tells me that over the last 2 weeks she has had increasing shortness of breath with minimal activity as well as some chest discomfort. Has a history many years ago of having an LAD stent never had an HI to her knowledge. She does not have a history of heart failure she states. She does have a mild cough for the last few days but no fevers or chills objectively. Has intermittently felt warm or cold but states she does not feel like she has flulike symptoms. Chest pain has been substernal primarily at night. She denies any lower extremity edema. She has had some paroxysmal nocturnal dyspnea but no significant orthopnea. She attributed the majority of her symptoms to allergies. She does have a history of urinary tract infections presenting with generalized weakness but she states she has no urinary symptoms today. Related Data Home Medications ?Medication ?Instructions ?Recorded ?Confirmed acetaminophen 650 mg 650 mg PO Q12H 10/24/23 06/04/24 tablet,extended release (Tylenol Arthritis Pain) Previous Rx's ?Medication ?Instructions ?Recorded trazodone 50 mg tablet 50 - 100 mg (1 - 2 x 50 mg) PO HS 01/02/24 PRN insomnia 30 days #60 tabs cholecalciferol (vitamin D3) 1,250 1,250 mcg PO WEEKLY #12 caps 02/23/24 mcg (50,000 unit) capsule iron sucrose 200 mg iron/10 mL 200 mg (10 mL) IV WEEKLY 5 doses 02/23/24 intravenous solution (Venofer) furosemide 20 mg tablet 20 mg PO DAILY #90 tabs 02/29/24 mupirocin 2 % topical ointment 1 applic topical BID #15 grams 02/29/24 triamcinolone acetonide 0.1 % 1 applic topical TID #30 grams 02/29/24 topical cream diclofenac sodium 75 mg 75 mg PO BID #180 tabs 03/28/24 tablet,delayed release Allergies Allergy/AdvReac Type Severity Reaction Status Date / Time Penicillins Allergy Hives Verified 04/04/24 13:57 aspirin AdvReac Mild Hives/RASH Verified 04/04/24 13:57 [facility] Disclaimer: The information contained in this section may have been updated after the patient was seen, as this information can be updated by other users. Medical History Right wrist fracture ~2020, no surgery Cough Sinusitis Scalp lesion Gout attack Unsteady gait Ankle edema, bilateral PAF (paroxysmal atrial fibrillation) UTI (urinary tract infection) Right bundle branch block Dizziness Light-headed Former smoker Palpitations Syncope Ureteral calculus, left Distal radius fracture, right Surgical History History of colonoscopy History of gastric bypass History of appendectomy Hx of LASIK History of bladder surgery 4 bladder tucks History of hysterectomy for benign disease still has ovaries H/O shoulder surgery R rotator cuff, ~2018 Status post placement of implantable loop recorder Family History Family/Other No significant family history Social History Smoking Status: Never smoker alcohol intake: never substance use type: denies use current occupational status: retired Travel in the last 8 weeks: Inside the [place] adopted: No household members: none housing: house current occupational exposures/hazards: No ROS Obtained: Yes All systems reviewed & no additional complaints except as documented Physical Exam General General appearance: alert Respiratory Respiratory exam: Present other (Patient is tachypneic respiratory rate around 30 speaking in fragmented sentences oxygen saturation is normal on room air pulmonary exam otherwise normal) Cardiovascular Cardiovascular exam: Present regular rate and normal rhythm Neurological Exam Neurological exam: Present alert and oriented X3 Medical Decision Making Matthew Inquiry Pt receiving controlled substance: No Vital Signs: 06/04/24 10:34 06/04/24 10:41 06/04/24 10:44 Temperature 97.6 F Temperature Source Oral Pulse Rate 58 L 60 Pulse Rate [Left Radial] 64 Respiratory Rate 18 25 H Blood Pressure 179/77 H Blood Pressure [Right Arm] 187/166 H Blood Pressure Mean [Right Arm] 173 02 Sat by Pulse Oximetry 100 100 Oxygen Delivery Method Room Air Room Air 06/04/24 11:00 06/04/24 11:31 06/04/24 12:03 Temperature Temperature Source Pulse Rate 69 63 61 Pulse Rate [Left Radial] Respiratory Rate 18 23 26 H Blood Pressure 199/116 H 147/111 H 186/81 H Blood Pressure [Right Arm] Blood Pressure Mean [Right Arm] 02 Sat by Pulse Oximetry 100 99 97 Oxygen Delivery Method Room Air Room Air Room Air Lab Data Lab results reviewed: Yes I reviewed the patient's lab results. Lab Results 06/04/24 10:38: WBC 5.7, RBC 4.16 L, Hgb 13.2, Hct 41.5, MCV 99.9 H, MCH 31.7 H, MCHC 31.7 L, RDW 14.5, Plt Count 280, MPV 8.5, Neut % (Auto) 48.2, Lymph % (Auto) 44.0, [place] % (Auto) 4.6, Eos % (Auto) 2.3, Baso % (Auto) 1.0, Neut # (Auto) 2.7, Lymph # (Auto) 2.5, [place] # (Auto) 0.3, Eos # (Auto) 0.1, Baso # (Auto) 0.1, D-Dimer 0.39, Sodium 141, Potassium 3.6, Chloride 108 H, Carbon Dioxide 29, Anion Gap 7.6, BUN 19 H, Creatinine 0.90, Estimated Creat Clear 40, Estimated GFR 60, Est GFR ( Amer) 72, Glucose 112 H, Calcium 10.2, Total Bilirubin 0.8, AST 39 H, ALT 36, Alkaline Phosphatase 110, Troponin I < 0.01, N T-Pro-B Natriuret Pep 669 H, Total Protein 7.5, Albumin 4.3, Globulin 3.2, Albumin/Globulin Ratio 1.3 06/04/24 11:04: VBG pH 7.50 H, VBG pCO2 34.4 L, VBG pO2 26.7 L, VBG HCO3 26.2, V BG Total CO2 27.3 H, VBG O2 Saturation 58.4, VBG Base Excess 3.0 H, VBG Lactic Acid 2.5 H, SARS-CoV-2 (PCR) Detected A, Influenza A Untype (PCR) Not detected, Influenza Type B (PCR) Not detected 06/04/24 12:03: Urine Color Yellow, Urine Appearance Clear, Urine pH 8.0, Ur Specific [place] 1.020, Urine Protein Negative, Urine Glucose (UA) Negative, Urine Ketones Negative, Urine Blood Negative, Urine Nitrate Negative, Urine Bilirubin Negative, Urine Urobilinogen 0.2, Ur Leukocyte Esterase Negative, Urine RBC None, Urine WBC None, Ur Squamous Epith Cells None, Urine Bacteria None 06/04/24 10:38 06/04/24 10:38 Orders (Tests/Meds): ED MEDICATIONS Generic Name Dose Route Start Last Admin Trade Name Freq PRN Reason Stop Dose Admin Sodium Chloride 10 ml 06/04/24 10:49 Sodium Chloride 0.9% 10ml Flush Syringe IV 07/04/24 10:48 NEEDED PRN Maintain IV Site ORDERS Category Date Time Status CXR --portable [XR chest portable] Stat Exams 06/04/24 10:48 Taken POCUS Point of Care (ER Only) Stat Exams 06/04/24 11:00 Completed BNP [NT Pro Brain Natriuretic Pep.] Stat Lab 06/04/24 10:38 Completed Complete Blood Count Auto Diff Stat Lab 06/04/24 10:38 Completed Comprehensive Metabolic Panel Stat Lab 06/04/24 10:38 Completed D-Dimer Stat Lab 06/04/24 10:38 Completed Lactate Venous Stat Lab 06/04/24 11:04 Ordered Rapid PCR Covid and Flu A/B Stat Lab 06/04/24 11:04 Completed Troponin I Q3H Lab 06/04/24 14:00 Ordered Troponin I Q3H Lab 06/04/24 17:00 Ordered Troponin I Stat Lab 06/04/24 10:38 Completed UA [Urinalysis and Microscopic] Stat Lab 06/04/24 12:03 Completed Venous Blood Gas Stat RT 06/04/24 11:04 Completed Medical Decision Narrative: 84-year-old female presented today with tachypnea otherwise appears well aside from subjective shortness of breath and tachypnea. No significant hypoxic respiratory failure. Pulmonary exam is nonfocal differential includes heart failure, HI, pneumonia, pulmonary embolism etc. Will perform a limited bedside ultrasound of the heart and lungs get a chest x-ray initiated general workup and reassess. Reassessment 1155 patient remained stable respiratory evaluation on this assessment was normal respiratory of 20 or less. Oxygen saturation remains normal. Chest x-ray performed to person interpreted shows cardiomegaly but no definitive other acute cardiothoracic abnormality such as dense consolidation etc. Limited ultrasound of the heart was subsequently performed which showed a normal LVEF no evidence of severe right heart strain normal IVC. This is not consistent with decompensated heart failure BNP very mildly nonspecifically elevated. Troponin unremarkable given the duration of symptoms no need for serial troponins. At this point no definitive diagnosis from an acute cardiopulmonary standpoint she does remain weak and she has had UTIs performed this for the past. Awaiting urinalysis and will reassess. Reassessment 12:41 PM patient breathing very comfortable at this point nontoxic in appearance labs unremarkable overall from emergency standpoint. She is positive for COVID-19 and she has been symptomatic for 1 to 2 weeks Paxlovid is not indicated she has no evidence of hypoxic respiratory failure or focal consolidation. She does not need to be admitted nor did she need steroids or supplemental oxygen. This does explain the symptoms she has been suffering from. I am comfortable ruling out any cardiopulmonary emergency at this point. I spoke with Dr. Conti over the phone to close the loop given his referral. Patient may follow-up in a voluntary fashion but no definitive need for this. Patient was discharged in improved and stable condition. This should be self- limiting she may follow-up with primary care doctor return if significant worsening of her symptoms. Procedures Miscellaneous Procedure Procedure Performed: Limited cardiac ultrasound Indication: Dyspnea Identified structures: The heart was visualized in the parasternal long axis, parastenal short axis, apical four chamber and subxyphiod views. The IVC was visualized in the short axis and long axis at its entry into the right atrium. Findings: Normal LVEF no evidence of pericardial effusion or severe right heart strain IVC is less than 2 cm with normal respirophasic variation Impression: Unremarkable limited bedside ultrasound of the heart Images were saved to permanent archive The study was technically adequate CPT: 27712-92 This study was performed by me, and I personally interpreted all images/videos. Based on my clinical judgement, these images were adequate and did not necessitate further imaging. Critical Care Critical Care Time Critical Care Time: No
[2024-06-04 11:07] LABS: Influenza A, PCR Not Detected (NotDetected); Influenza B, PCR Not Detected (NotDetected); Lactate Venous 2.5 mmol/L (0.4-2.0)
[2024-06-04 11:20] LABS: Basophils # 0.1 K/mm3 (0-0.2); Eosinophils # 0.1 K/mm3 (0.0-0.4); Eosinophils % 2.3 % (0.1-12.0); Hematocrit 41.5 % (37.0-47.0); Hemoglobin 13.2 g/dL (12.2-16.2); Lymphocytes # 2.5 K/mm3 (0.7-4.5); Mean Corpuscular HGB Conc 31.7 g/dL (31.8-35.4); Mean Corpuscular Hemoglobin 31.7 pg (27.0-31.2); Mean Corpuscular Volume 99.9 fl (81-99); Mean Platelet Volume 8.5 fl (7.4-10.4); Monocytes # 0.3 K/mm3 (0.1-1.0); Monocytes % 4.6 % (1.7-9.3); Neutrophils # 2.7 K/mm3 (1.8-7.8); Neutrophils % 48.2 % (37.0-80.0); Platelet Count 280 K/mm3 (142-424); Red Blood Count 4.16 M/mm3 (4.20-5.40); Red Cell Distribution Width 14.5 % (11.5-17.5); White Blood Count 5.7 K/mm3 (4.8-10.8)
[2024-06-04 11:24] LABS: Alanine Aminotransferase 36 U/L (12-78); Albumin Level 4.3 g/dl (3.5-5.0); Albumin/Globulin Ratio 1.3 (1.1-1.8); Alkaline Phosphatase 110 U/L (38-126); Anion Gap 7.6 mEq/L (5-15); Aspartate Amino Transferase 39 U/L (14-36); Bilirubin,Total 0.8 mg/dl (0.2-1.3); Blood Urea Nitrogen 19 mg/dl (7-17); Calcium 10.2 mg/dl (8.4-10.2); Carbon Dioxide 29 mmol/L (22.0-30.0); Chloride 108 mmol/L (98-107); Creatinine Clearance Estimated 40 mL/min (50-200); Estimated Glomerular Filt Rate 60 ml/min (>60); GFR (African American) 72 ML/MIN (>60); Globulin 3.2 g/dL (1.3-3.2); Glucose 112 mg/dl (74-100); Potassium 3.6 mmoL/L (3.5-5.1); Sodium 141 mmol/L (136-145); Total Protein,Serum 7.5 g/dl (6.3-8.2)
[2024-06-04 11:30] LABS: D-Dimer 0.39 ug/mL (0.0-0.5)
[2024-06-04 11:33] LABS: NT Pro Brain Natriuretic Pep. 669 pg/mL (0-450)
[2024-06-04 11:36] LABS: Troponin I < 0.01 ng/ml (0.00-0.034)
--- NOTE | 2024-06-04 11:46 | PC.NURSE ---
Dr. Woods and PA student in room performing bedside US
[2024-06-04 11:57] LABS: Coronavirus 19, PCR Detected (NotDetected)
[2024-06-04 12:07] LABS: Microscopic, Urine URINE MICROSCOPIC (MICROSCOPIC)
[2024-06-04 12:16] LABS: Appearance,Urine CLEAR (Clear); Bilirubin,Urine Negative (Negative); Blood, Urine Negative (Negative); Color,Urine YELLOW (Yellow); Glucose,Urine (UA) Negative (Negative); Ketones,Urine Negative (Negative); Leukocyte Esterase,Urine Negative (Negative); Nitrate,Urine Negative (Negative); Protein,Urine Negative (Negative); Urobilinogen,Urine 0.2 EU/dl (0.2)
--- NOTE | 2024-06-04 12:36 | PC.NURSE ---
Dr. Woods and PA student at bedside updating pt
[2024-06-04 15:07] LABS: Reflex Lactic Add Lactic Reflex
== END 2024-06-04 12:47 | disposition home or self-care (01) ==
PROVIDERS: Emergency Provider Student in an Organized Health Care Education/Training Program; PCP Nurse Practitioner Family
DX: U07.1 COVID-19 (principal); R74.02 Elevation of levels of lactic acid dehydrogenase [LDH]; R06.02 Shortness of breath; R53.1 Weakness
CPT/HCPCS: 71045; 80053; 81001; 82803; 83880; 84484; 85025; 85378; 87636; 93005; 99285

== ENCOUNTER 2024-06-29 08:02 | Day surgery (SDC) | payer MEDICARE, SELFPAY ==
[2024-06-29 08:07] VITALS: BMI 22.7
[2024-06-29 08:44] VITALS: BP 133/97; PULSE 60; RESP 20; O2SAT 97
[2024-06-29] MEDS: CLINDAMYCIN PHOSPHATE 600 MG in 0.9 % SODIUM CHLORIDE 100 ML 100 MG IV (09:44)
[2024-06-29] MEDS: LIDOCAINE 2% W/EPI 1:100,000 20ML VIAL 20 ML SQ (09:44)
[2024-06-29 10:00] VITALS: BP 146/100; PULSE 60; RESP 20; O2SAT 100
[2024-06-29 10:06] VITALS: BP 146/106; PULSE 80; RESP 20; O2SAT 99
--- NOTE | 2024-07-02 14:00 | P.PCN_ITS ---
[facility] Loop Recorder Date: 06/29/24 Time: 10:00 Procedure Performed:: Removal of loop recorder Indication:: Patient request Technique:: Patient was brought to the cardiac Service Rig Operator as an outpatient. After informed consent was obtained, lidocaine was used to anesthetize the area over the device and a scalpel was used to dissect down to the device. Forceps used to help remove the device. Surgical glue and Steri-Strips used to approximate the edges for closure. Patient tolerated the procedure without complications. Impression:: Successful removal of the loop recorder Serial Number:: Not documented Plan:: Routine postop care
== END 2024-06-29 10:14 | disposition home or self-care (01) ==
PROVIDERS: PCP Nurse Practitioner Family; Visit Provider Internal Medicine
DX: Z45.09 Encounter for adjustment and management of other cardiac device (principal); Z79.899 Other long term (current) drug therapy
CPT/HCPCS: 33286

== ENCOUNTER 2024-07-05 13:38 | Outpatient (CLI) | payer MEDICARE, SELFPAY ==
--- NOTE | 2024-07-05 13:41 | MR_ITS ---
FINAL REPORT CLINICAL HISTORY: RIGHT SHOULDER PAIN. UNABLE TO RAISE ARM COMPARISON: None FINDINGS: Multiplanar MR imaging of the right shoulder was performed without contrast. There is motion artifact on many of the images decreasing sensitivity of this exam. There are postoperative changes from rotator cuff repair. There are complete tears of the distal supraspinatus and infraspinatus tendons with the tendons retracted to the level of the glenoid. Findings are consistent with re-tears. Moderate AC joint arthrosis is noted. There is a large amount of fluid in the joint and bursa. The glenoid labrum is intact. The long head of the biceps tendon is intact. No significant glenohumeral joint effusion is seen. There is no evidence of fracture or dislocation. The musculature is intact. There is no evidence of soft tissue mass. IMPRESSION: Complete tears of the distal supraspinatus and infraspinatus tendons with retraction to the level of the glenoid consistent with re-tears. Large fluid in the joint and bursa. Moderate AC joint arthrosis. Reviewed, Interpreted and Dictated by Johny Avitia III, MD Transcribed by Feli Sen Authenticated and [facility]
== END 2024-07-05 23:59 | disposition home or self-care (01) ==
LOC: RAD 13:40
PROVIDERS: PCP Nurse Practitioner Family; Visit Provider Orthopaedic Surgery
DX: M25.511 Pain in right shoulder (principal)
CPT/HCPCS: 73221

== ENCOUNTER 2024-09-24 13:00 | Outpatient (RCR) | payer MEDICARE, SELFPAY | END 2024-09-24 23:59 | disposition home or self-care (01) | LOC: OT 13:00 | PROVIDERS: Visit Provider Podiatrist Foot & Ankle Surgery | DX: M25.511 Pain in right shoulder (principal); Z98.890 Other specified postprocedural states | CPT/HCPCS: 97014; 97035; 97140; 97165; 97168; 97530; G0283 ==

== ENCOUNTER 2024-10-25 13:00 | Outpatient (RCR) | payer MEDICARE, SELFPAY | END 2024-10-25 23:59 | disposition home or self-care (01) | LOC: OT 13:00 | PROVIDERS: Visit Provider Podiatrist Foot & Ankle Surgery | DX: Z98.890 Other specified postprocedural states (principal) | CPT/HCPCS: 97014; 97110; 97140; 97530; G0283 ==

== ENCOUNTER 2025-08-19 12:26 | Emergency (ER) | payer MEDICARE, SELFPAY ==
[2025-08-19] VITALS (7 sets, daily range): BP systolic 179–202; BP diastolic 61–97; PULSE 69–81; RESP 18–22; TEMP 36.8–36.9; O2SAT 96–100; BMI 21.9
--- NOTE | 2025-08-19 12:45 | CT_ITS ---
FINAL REPORT TECHNIQUE: Thin section axial images are obtained through the abdomen and pelvis after intravenous contrast. Reconstruction images were obtained from the axial data. Exam was performed using dose reduction techniques. CLINICAL HISTORY: RLQ abd pain COMPARISON: 10/15/2018 FINDINGS: LUNG BASES: Lung bases are clear. Heart size is normal. LIVER: There are several, 1 cm or less liver lesions which are nonspecific. Findings may represent small cysts. GALLBLADDER/BILIARY SYSTEM: Gallstones are seen in a mildly distended gallbladder. No biliary ductal dilatation. SPLEEN: Unremarkable. PANCREAS: Unremarkable. ADRENALS: Unremarkable. KIDNEYS/URETERS/BLADDER: There is slight worsening left hydronephrosis with an obstructing 13 mm left UPJ stone which was present on prior exam. There is new right hydroureteronephrosis to the level of several distal right ureteral stones measuring up to 10 mm. There are additional, nonobstructing right renal stones. GI TRACT: There is a small hiatal hernia. There are postoperative changes of gastric bypass. There is no evidence of small bowel obstruction. The appendix is not visualized. There are no secondary findings of appendicitis. There is mild distention of the proximal colon with stool and gas. Remaining GI tract is without acute abnormality. PELVIC ORGANS: Uterus is absent. LYMPH NODES/RETROPERITONEUM/MESENTERY: No lymphadenopathy. No abdominal aortic aneurysm. ABDOMINAL WALL: The abdominal wall is intact. FREE FLUID: No ascites. BONES: No acute osseous abnormality. IMPRESSION: 1. New right hydroureteronephrosis related to distal obstructing stones. 2. Worsening left hydronephrosis secondary to UPJ stone which has increased in size. 3. Other chronic findings. Reviewed, Interpreted and Dictated by Aurora Ramos MD Transcribed by Hayley Downs Authenticated and . [facility]
--- NOTE | 2025-08-19 12:47 | ED_ITS ---
Discharge Plan Disposition Patient Disposition: Xfer Other Prescriptions Prescriptions: No Action acetaminophen [Tylenol Arthritis Pain] 650 mg tablet extended release 650 mg PO Q12H mupirocin 2 % ointment 1 applic topical BID Qty: 15 1RF triamcinolone acetonide 0.1 % cream 1 applic topical TID Qty: 30 1RF rosuvastatin [Crestor] 20 mg tablet 20 mg PO DAILY Qty: 90 3RF meclizine 25 mg tablet 25 mg PO BID PRN (Reason: dizziness) Qty: 60 5RF cholecalciferol (vitamin D3) 1,250 mcg (50,000 unit) capsule 1,250 mcg PO WEEKLY Qty: 12 1RF furosemide 20 mg tablet 20 mg PO DAILY Qty: 90 2RF trazodone 50 mg tablet See Rx Instructions .ROUTE .COMPLEX Qty: 180 0RF Dose Instruction: TAKE 1 TO 2 TABLETS BY MOUTH ONCE DAILY AT BEDTIME NEEDED FOR INSOMNIA Rx Instructions: TAKE 1 TO 2 TABLETS BY MOUTH ONCE DAILY AT BEDTIME NEEDED FOR INSOMNIA Referrals Follow up/Referrals: Elidia Jaramillo APRN [Primary Care Provider, Family Practice] - See instructions Clinical Impressions Clinical Impression: Abdominal pain, RLQ, Hydronephrosis concurrent with and due to calculi of kidney and ureter Print Language Print Language: Azeri Discharge ED Provider: Clay Woods General Adult HPI <Clay Woods MD - Last Filed: 08/19/25 15:01> General Chief complaint: Weakness Stated complaint: Pain R side, dizziness Time Seen by Provider: 08/19/25 12:37 Mode of Arrival: Wheelchair Source of Information: Patient Description of Symptoms (Recalled from ER Triage Doc. by RN): Patient reports right sided pain for a couple of days. Reports weakness, dizziness and generalized not feeling well. States she has been taking tylenol and that it has not been working. History of Present Illness HPI narrative: Patient is an 85-year-old female presenting today with intermittent right lower quadrant abdominal pain that has become persistent and severe. This has been ongoing for several days she thought she could tough it out but states the pain got so bad and so severe is so constant that it made her feel like she was in a pass out this morning thus prompting her to come to emergency department. She had similar symptoms within the last several years that was ultimately diagnosed as a kidney stone requiring lithotripsy. She has had an appendectomy and a partial hysterectomy ovaries still are in place. Has not had a cholecystectomy in the past. No fevers or chills. No other urinary symptoms such as burning frequency urgency hematuria or changes in bowel movements. Related Data Home Medications ?Medication ?Instructions ?Recorded ?Confirmed acetaminophen 650 mg 650 mg PO Q12H 10/24/2305/20 tablet,extended release (Tylenol Arthritis Pain) Previous Rx's ?Medication ?Instructions ?Recorded cholecalciferol (vitamin D3) 1,250 1,250 mcg PO WEEKLY #12 caps 02/23/24 mcg (50,000 unit) capsule mupirocin 2 % topical ointment 1 applic topical BID #1 5 grams 02/29/24 triamcinolone acetonide 0.1 % 1 applic topical TID #30 grams 02/29/24 topical cream rosuvastatin 20 mg tablet (Crestor) 20 mg PO DAILY #90 tabs 07/16/24 meclizine 25 mg tablet 25 mg PO BID PRN dizziness # 60 tabs 10/03/24 furosemide 20 mg tablet 20 mg PO DAILY #90 tabs 02/25 05/20 trazodone 50 mg tablet See Rx Instructions .Route 1 .COMPLEX #180 tabs Allergies Allergy/AdvReac Type Severity Reaction Status Date / Time Penicillins Allergy Hives Verified 10/03/24 15:30 aspirin AdvReac Mild Hives/RASH Verified 10/03/24 15:30 [facility] <Clay Woods MD - Last Filed: 08/19/25 15:01> [facility] Disclaimer: The information contained in this section may have been updated after the patient was seen, as this information can be updated by other users. Medical History Fatigue Chronic diarrhea Black stools Generalized weakness UTI due to Klebsiella species Skin lesion of right leg Preoperative clearance COVID-19 HLD (hyperlipidemia) Right wrist fracture ~2020, no surgery Cough Sinusitis Scalp lesion Gout attack Unsteady gait Ankle edema, bilateral PAF (paroxysmal atrial fibrillation) UTI (urinary tract infection) Right bundle branch block Dizziness Light-headed Former smoker Palpitations Syncope Ureteral calculus, left Distal radius fracture, right Surgical History History of colonoscopy History of gastric bypass History of appendectomy Hx of LASIK History of bladder surgery 4 bladder tucks History of hysterectomy for benign disease still has ovaries H/O shoulder surgery R rotator cuff, ~2018 Status post placement of implantable loop recorder Family History Family/Other No significant family history Social History Smoking Status: Never smoker alcohol intake: never substance use type: denies use current occupational status: retired Travel in the last 8 weeks?: Inside the [facility] adopted: No household members: none housing: house current occupational exposures/hazards: No caffeine: Yes Have you lived/traveled outside [place] in past 30 days?: No Contact w/someone who lives/traveled outside US past 30 days?: No Exposure to someone with infectious disease in past 14 days?: No Do you have a fever (greater than 100.4 F or 38 C)?: No Have you tested positive for COVID-19?: No Exposed to someone with COVID-19 in past 14 days?: No Do you have a sore throat?: No Do you have a cough?: No Do you have any weakness?: No Do you have any diarrhea?: No Are you experiencing any unusual bleeding?: No Do you have any muscle aches/pain?: No Do you have any abdominal pain?: No Are you experiencing loss of taste or smell?: No Other Medical History Have you received the Flu Vaccine for this season: Yes Have you received the Pneumonia Vaccine: No <Clay Woods MD - Last Filed: 08/19/25 15:01> ROS Obtained: Yes All systems reviewed & no additional complaints except as documented Physical Exam <Clay Woods MD - Last Filed: 08/19/25 15:01> General General appearance: alert Respiratory Respiratory exam: Present normal lung sounds bilaterally Cardiovascular Cardiovascular exam: Present regular rate Abdominal Exam Abdominal exam: Present soft and tenderness (Right lower quadrant and right mid abdomen tenderness to palpation) Neurological Exam Neurological exam: Present alert Medical Decision Making <Clya Woods MD - Last Filed: 08/19/25 15:01> Medical Records Screening: Per USPSTF and CDC recommendations, given the prevalence of disease in our region, it is our hospital?s policy to screen for HIV and viral Hepatitis for all patients aged 18 and over and those with ongoing risk factors. Matthew Inquiry Pt receiving controlled substance: No Vital Signs: 08/19/25 12:34 08/19/25 12:53 08/19/25 13:00 Temperature 98.2 F Temperature Source Oral Pulse Rate 74 73 Pulse Rate [Radial] 69 Respiratory Rate 22 Blood Pressure 195/89 H 194/85 H Blood Pressure [Right Arm] 179/61 H Blood Pressure Mean 124 121 Blood Pressure Mean [Right Arm] 100 Blood Pressure Source [Right Arm] Automatic Cuff Blood Pressure Position [Right Arm] Sitting 02 Sat by Pulse Oximetry 100 Oxygen Delivery Method Room Air 08/19/25 13:30 08/19/25 14:00 08/19/25 14:00 Temperature Temperature Source Pulse Rate 71 78 Pulse Rate [Radial] Respiratory Rate Blood Pressure 202/97 H 192/88 H 192/88 H Blood Pressure [Right Arm] Blood Pressure Mean 132 122 Blood Pressure Mean [Right Arm] Blood Pressure Source [Right Arm] Blood Pressure Position [Right Arm] 02 Sat by Pulse Oximetry 98 Oxygen Delivery Method Room Air 08/19/25 14:30 Temperature Temperature Source Pulse Rate 77 Pulse Rate [Radial] Respiratory Rate Blood Pressure 184/87 H Blood Pressure [Right Arm] Blood Pressure Mean Blood Pressure Mean [Right Arm] Blood Pressure Source [Right Arm] Blood Pressure Position [Right Arm] 02 Sat by Pulse Oximetry 96 Oxygen Delivery Method Lab Data Lab results reviewed: Yes I reviewed the patient's lab results. Lab Results 08/19/25 12:40: WBC 5.4, RBC 4.17 L, Hgb 13.1, Hct 38.0, MCV 91.1, MCH 31.4 H, MCHC 34.5, RDW 12.5, Plt Count 240, MPV 10.8 H, Neut % (Auto) 61.5, Lymph % (Auto) 30.5, Foster % (Auto) 5.2, Eos % (Auto) 2.2, Baso % (Auto) 0.4, Neut # (Auto) 3.3, Lymph # (Auto) 1.7, Foster # (Auto) 0.3, Eos # (Auto) 0.1, Baso # (Auto) 0.0, Sodium 138, Potassium 4.0, Chloride 106, Carbon Dioxide 22, Anion Gap 14.0, BUN 22 H, Creatinine 1.20 H, Estimated Creat Clear 32, Estimated GFR 43 L, Est GFR ( Amer) 52 L, Glucose 143 H, Calcium 10.7 H, Total Bilirubin 0.7, AST 37 H, ALT 27, Alkaline Phosphatase 152 H, Total Protein 7.9, Albumin 5.0, Globulin 2.9, Albumin/Globulin Ratio 1.7, Urine Color Yellow, Urine Appearance Cloudy, Urine pH 5.5, Ur Specific [place] 1.020, Urine Protein 1+ A, Urine Glucose (UA) Negative, Urine Ketones Negative, Urine Blood 3+ A, Urine Nitrate Negative, Urine Bilirubin Negative, Urine Urobilinogen 0.2, Ur Leukocyte Esterase Trace, Urine RBC 50-100, Urine WBC Occasional, Ur Squamous Epith Cells Occasional, Urine Bacteria Trace, HCV Ab NICOLÁS w/Rflx PCR Qn Negative, HIV Ag/Ab Combo Qual Negative 08/19/25 12:40 08/19/25 12:40 Orders (Tests/Meds): ED MEDICATIONS Discontinued Medications Generic Name Dose Route Start Last Admin Trade Name Jignesh PRN Reason Stop Dose Admin Lactated Ringer's 1,000 mls @ 999 mls/hr 08/19/25 12:45 08/19/25 14:22 Lactated Ringer's 1000 Ml Bag IV 08/19/25 13:45 Infused .Q1H1M UTE Infusion Iopamidol 75 ml 08/19/25 13:53 08/19/25 13:54 Iopamidol-370 (76%);100ml Bottle IV 08/19/25 13:54 75 ml ONCE ONE Administration Ketorolac Tromethamine 15 mg 08/19/25 13:58 08/19/25 14:12 Ketorolac 30mg/Ml Vial IV 08/19/25 13:59 15 mg ONCE ONE Administration Morphine Sulfate 4 mg 08/19/25 12:45 08/19/25 12:54 Morphine 4mg/Ml Syringe IV 08/19/25 12:46 4 mg ONCE ONE Administration Ondansetron HCl 4 mg 08/19/25 12:45 08/19/25 12:54 Ondansetron 4mg/2ml Vial IV 08/19/25 12:46 4 mg ONCE ONE Administration Sodium Chloride 10 ml 08/19/25 13:53 08/19/25 13:54 Sodium Chloride 0.9% 10ml Syr (Rad Only) IV 08/19/25 13:54 10 ml ONCE ONE Administration ORDERS Category Date Time Status CT abdomen pelvis w con Stat Cat Scan 08/19/25 12:45 Completed CBC w/Auto Diff [Complete Blood Count Auto Diff] Stat Lab 08/19/25 12:40 Completed CMP [Comprehensive Metabolic Panel] Stat Lab 08/19/25 12:40 Completed HIV Combo Stat Lab 08/19/25 12:40 Completed Hepatitis C Ab Qual. W/ RFX Stat Lab 08/19/25 12:40 Completed UA [Urinalysis and Microscopic] Stat Lab 08/19/25 12:40 Completed Medical Decision Narrative: Patient with above history and physical with significant right lower quadrant abdominal pain. Differential includes obstructing kidney stone, colitis, diverticulitis, bowel obstruction, hernia with obstruction etc. Will get contrasted CT scan and IV fluids pain medicine nausea medicine while diagnostic workup is pending as well Reassessment 157 patient still having significant pain will escalate and give Toradol. CT scan performed which I personally interpreted shows bilateral moderate to severe hydronephrosis and hydroureter with bilateral kidney stones left is in the mid ureter 11 mm right is at the UV junction measuring 6.5 mm on my evaluation. Patient had been operated on by Dr. Mcginnis in the past who is since retired but she would still like to go to [facility] we will give them a call first. These are unlikely to pass on their own. She still having severe pain as discussed. Reassessment 3 PM [facility] did not have any urology coverage we are calling [facility] right now still waiting to hear back from them. Care will be transitioned to Dr. Gaytan at 3 PM pending final disposition <Markel Rangel MD - Last Filed: 08/19/25 16:26> Vital Signs: 08/19/25 12:34 08/19/25 12:53 08/19/25 13:00 Temperature 98.2 F Temperature Source Oral Pulse Rate 74 73 Pulse Rate [Radial] 69 Respiratory Rate 22 Blood Pressure 195/89 H 194/85 H Blood Pressure [Right Arm] 179/61 H Blood Pressure Mean 124 121 Blood Pressure Mean [Right Arm] 100 Blood Pressure Source [Right Arm] Automatic Cuff Blood Pressure Position [Right Arm] Sitting 02 Sat by Pulse Oximetry 100 Oxygen Delivery Method Room Air 08/19/25 13:30 08/19/25 14:00 08/19/25 14:00 Temperature Temperature Source Pulse Rate 71 78 Pulse Rate [Radial] Respiratory Rate Blood Pressure 202/97 H 192/88 H 192/88 H Blood Pressure [Right Arm] Blood Pressure Mean 132 122 Blood Pressure Mean [Right Arm] Blood Pressure Source [Right Arm] Blood Pressure Position [Right Arm] 02 Sat by Pulse Oximetry 98 Oxygen Delivery Method Room Air 08/19/25 14:30 Temperature Temperature Source Pulse Rate 77 Pulse Rate [Radial] Respiratory Rate Blood Pressure 184/87 H Blood Pressure [Right Arm] Blood Pressure Mean Blood Pressure Mean [Right Arm] Blood Pressure Source [Right Arm] Blood Pressure Position [Right Arm] 02 Sat by Pulse Oximetry 96 Oxygen Delivery Method Lab Data Lab Results 08/19/25 12:40: WBC 5.4, RBC 4.17 L, Hgb 13.1, Hct 38.0, MCV 91.1, MCH 31.4 H, MCHC 34.5, RDW 12.5, Plt Count 240, MPV 10.8 H, Neut % (Auto) 61.5, Lymph % (Auto) 30.5, Foster % (Auto) 5.2, Eos % (Auto) 2.2, Baso % (Auto) 0.4, Neut # (Auto) 3.3, Lymph # (Auto) 1.7, Foster # (Auto) 0.3, Eos # (Auto) 0.1, Baso # (Auto) 0.0, Sodium 138, Potassium 4.0, Chloride 106, Carbon Dioxide 22, Anion Gap 14.0, BUN 22 H, Creatinine 1.20 H, Estimated Creat Clear 32, Estimated GFR 43 L, Est GFR ( Amer) 52 L, Glucose 143 H, Calcium 10.7 H, Total Bilirubin 0.7, AST 37 H, ALT 27, Alkaline Phosphatase 152 H, Total Protein 7.9, Albumin 5.0, Globulin 2.9, Albumin/Globulin Ratio 1.7, Urine Color Yellow, Urine Appearance Cloudy, Urine pH 5.5, Ur Specific [place] 1.020, Urine Protein 1+ A, Urine Glucose (UA) Negative, Urine Ketones Negative, Urine Blood 3+ A, Urine Nitrate Negative, Urine Bilirubin Negative, Urine Urobilinogen 0.2, Ur Leukocyte Esterase Trace, Urine RBC 50-100, Urine WBC Occasional, Ur Squamous Epith Cells Occasional, Urine Bacteria Trace, HCV Ab NICOLÁS w/Rflx PCR Qn Negative, HIV Ag/Ab Combo Qual Negative Orders (Tests/Meds): ED MEDICATIONS Discontinued Medications Generic Name Dose Route Start Last Admin Trade Name Connorq PRN Reason Stop Dose Admin Lactated Ringer's 1,000 mls @ 999 mls/hr 08/19/25 12:45 08/19/25 14:22 Lactated Ringer's 1000 Ml Bag IV 08/19/25 13:45 Infused .Q1H1M UTE Infusion Iopamidol 75 ml 08/19/25 13:53 08/19/25 13:54 Iopamidol-370 (76%);100ml Bottle IV 08/19/25 13:54 75 ml ONCE ONE Administration Ketorolac Tromethamine 15 mg 08/19/25 13:58 08/19/25 14:12 Ketorolac 30mg/Ml Vial IV 08/19/25 13:59 15 mg ONCE ONE Administration Morphine Sulfate 4 mg 08/19/25 12:45 08/19/25 12:54 Morphine 4mg/Ml Syringe IV 08/19/25 12:46 4 mg ONCE ONE Administration Ondansetron HCl 4 mg 08/19/25 12:45 08/19/25 12:54 Ondansetron 4mg/2ml Vial IV 08/19/25 12:46 4 mg ONCE ONE Administration Sodium Chloride 10 ml 08/19/25 13:53 08/19/25 13:54 Sodium Chloride 0.9% 10ml Syr (Rad Only) IV 08/19/25 13:54 10 ml ONCE ONE Administration ORDERS Category Date Time Status CT abdomen pelvis w con Stat Cat Scan 08/19/25 12:45 Completed CBC w/Auto Diff [Complete Blood Count Auto Diff] Stat Lab 08/19/25 12:40 Completed CMP [Comprehensive Metabolic Panel] Stat Lab 08/19/25 12:40 Completed HIV Combo Stat Lab 08/19/25 12:40 Completed Hepatitis C Ab Qual. W/ RFX Stat Lab 08/19/25 12:40 Completed UA [Urinalysis and Microscopic] Stat Lab 08/19/25 12:40 Completed Medical Decision Narrative: Patient with above history and physical with significant right lower quadrant abdominal pain. Differential includes obstructing kidney stone, colitis, diverticulitis, bowel obstruction, hernia with obstruction etc. Will get contrasted CT scan and IV fluids pain medicine nausea medicine while diagnostic workup is pending as well Reassessment 157 patient still having significant pain will escalate and give Toradol. CT scan performed which I personally interpreted shows bilateral moderate to severe hydronephrosis and hydroureter with bilateral kidney stones left is in the mid ureter 11 mm right is at the UV junction measuring 6.5 mm on my evaluation. Patient had been operated on by Dr. Mcginnis in the past who is since retired but she would still like to go to [facility] we will give them a call first. These are unlikely to pass on their own. She still having severe pain as discussed. Reassessment 3 PM [facility] did not have any urology coverage we are calling [facility] now still waiting to hear back from them. Care will be transitioned to Dr. Gaytan at 3 PM pending final disposition Markel Rangel MD At the time my assumption of care, plan was to follow-up callback from [facility] for transfer for urology for bilateral ureteral stones with new right hydronephrosis in the setting of BATSHEVA. Labwork shows no leukocytosis, no anemia, mild BATSHEVA with creatinine of 1.2 and BUN of 22, calcium mildly elevated at 10.7. No significant derangements in liver enzymes or bilirubin. Urinalysis with 3+ blood, 50-100 red blood cells on microscopy. Occasional white blood cells and only trace bacteria. Negative nitrate, negative leukocyte esterase. No evidence of infected ureteral stone. We had not heard from [facility] and 2 hours and reached back out at approximately 1605. They state that they have paged the urologist multiple times but have not heard back. Given no timeline for callback, will attempt to reach out to the [facility]. I spoke with VIOLETTE Truong at the [facility] transfer center and patient was accepted to the [facility] emergency department for transfer under Dr. Oseguera. I spoke with this plan with patient and her son and [id number] at the bedside and they were in agreement with this plan. Patient does wish to go [facility]. I feel that this is reasonable option given she is not septic, does not have an infected ureteral stone, and pain is well- controlled at this time. Critical Care <Clay Woods MD - Last Filed: 08/19/25 15:01> Critical Care Time Critical Care Time: No
[2025-08-19] MEDS: LACTATED RINGERS 1000ML 1,000 ML 999 ML IV (12:53)
[2025-08-19 12:54] LABS: Hematocrit 38.0 % (37.0-47.0); Hemoglobin 13.1 g/dL (12.2-16.2); Immature Granulocytes % 0.2 %; Mean Corpuscular HGB Conc 34.5 g/dL (31.8-35.4); Mean Corpuscular Hemoglobin 31.4 pg (27.0-31.2); Mean Corpuscular Volume 91.1 fl (81-99); Nucleated Red Blood Cells % 0 %; Platelet Count 240 K/mm3 (142-424); Red Blood Count 4.17 M/mm3 (4.20-5.40); Red Cell Distribution Width-SD 41.6 fL; White Blood Count 5.4 K/mm3 (4.8-10.8)
[2025-08-19] MEDS: MORPHINE 4MG/ML SYRINGE 4 MG IV (12:54)
[2025-08-19] MEDS: ONDANSETRON 4MG/2ML VIAL 4 MG IV (12:54)
[2025-08-19 12:57] LABS: Microscopic, Urine URINE MICROSCOPIC (MICROSCOPIC)
[2025-08-19 12:58] LABS: Alanine Aminotransferase 27 U/L (12-78); Albumin Level 5.0 g/dl (3.5-5.0); Albumin/Globulin Ratio 1.7 (1.1-1.8); Alkaline Phosphatase 152 U/L (38-126); Anion Gap 14.0 mEq/L (5-15); Aspartate Amino Transferase 37 U/L (14-36); Bilirubin,Total 0.7 mg/dl (0.2-1.3); Blood Urea Nitrogen 22 mg/dl (7-17); Calcium 10.7 mg/dl (8.4-10.2); Carbon Dioxide 22 mmol/L (22.0-30.0); Chloride 106 mmol/L (98-107); Creatinine Clearance Estimated 32 mL/min (50-200); Creatinine,Serum 1.20 mg/dl (0.52-1.04); Estimated Glomerular Filt Rate 43 ml/min (>60); GFR (African American) 52 ML/MIN (>60); Globulin 2.9 g/dL (1.3-3.2); Glucose 143 mg/dl (74-100); Potassium 4.0 mmoL/L (3.5-5.1); Sodium 138 mmol/L (136-145); Total Protein,Serum 7.9 g/dl (6.3-8.2)
[2025-08-19 13:04] LABS: Bilirubin,Urine Negative (Negative); Color,Urine YELLOW (Yellow); Glucose,Urine (UA) Negative (Negative); Ketones,Urine Negative (Negative); Leukocyte Esterase,Urine TRACE (Negative); PH,Urine 5.5 (5.0-8.5); Protein,Urine 1+ (Negative); Specific Gravity, Urine 1.020 (1.005-1.030); Urobilinogen,Urine 0.2 EU/dl (0.2)
[2025-08-19 13:26] LABS: Bacteria,Urine Trace /lpf; RBC,Urine 50-100 #/hpf (0-3); Squamous Epithelial Cell,Urine Occasional #/hpf (0-5); WBC,Urine Occasional #/hpf (0-3)
[2025-08-19] MEDS: IOPAMIDOL-370 (76%);100ML BOTTLE 75 ML IV (13:54)
[2025-08-19] MEDS: SODIUM CHLORIDE 0.9% 10ML SYR (RAD ONLY) 10 ML IV (13:54)
--- NOTE | 2025-08-19 14:01 | PC.NURSE ---
calling [facility] at this time.
[2025-08-19] MEDS: KETOROLAC 30MG/ML VIAL 15 MG IV (14:12)
--- NOTE | 2025-08-19 14:15 | PC.NURSE ---
Melisa providing warm blanket to patient at this time.
[2025-08-19 14:56] LABS: Hepatitis C Ab Qual. W/ RFX NEGATIVE (Negative)
--- NOTE | 2025-08-19 14:56 | PC.NURSE ---
called [facility] for update on possible transfer a this time.
--- NOTE | 2025-08-19 15:02 | PC.NURSE ---
pt reports large improvement in pain. resting in bed. son @ bedside
--- NOTE | 2025-08-19 16:09 | PC.NURSE ---
call [facility] for followup on transfer. [facility] advised they had attempted to contact Dr Tavares and left messages but have been able to get ahold of him. Dr Rangel has been made aware. Dr Rangel is now wanting to try [facility]
--- NOTE | 2025-08-19 16:13 | PC.NURSE ---
currently on phone with [facility] at this time per Dr Rangel for transfer for BATSHEVA and bilateral kidney stones.
--- NOTE | 2025-08-19 16:15 | PC.NURSE ---
Dr Rangel is on phone with [facility] at this time
== END 2025-08-19 16:41 | disposition other institution (70) ==
PROVIDERS: Emergency Provider Student in an Organized Health Care Education/Training Program; PCP Nurse Practitioner Family
DX: N13.0 Hydronephrosis with ureteropelvic junction obstruction (principal); N13.4 Hydroureter; R10.31 Right lower quadrant pain
CPT/HCPCS: 74177; 80053; 81001; 85025; 86803; 87389; 96361; 96374; 96375; 99285; J1885; J2270; J2405; J7120; Q9967